=== PATIENT | female | born 1985 | race Caucasian/White ===

== ENCOUNTER 2021-11-07 11:56 | Outpatient (REF) | payer OTHER, SELFPAY | END 2021-11-07 11:57 | disposition home or self-care (01) | LOC: HO.10HDL 11:56 | PROVIDERS: Visit Provider Internal Medicine Infectious Disease | DX: Z13.89 Encounter for screening for other disorder (principal) ==

== ENCOUNTER 2021-12-08 11:24 | Outpatient (REF) | payer OTHER, SELFPAY | END 2021-12-08 11:25 | disposition home or self-care (01) | LOC: HO.WFDLDS 11:24 | PROVIDERS: Visit Provider Internal Medicine Infectious Disease | DX: R53.83 Other fatigue (principal); A69.20 Lyme disease, unspecified | CPT/HCPCS: 36415 ==

== ENCOUNTER 2023-09-09 14:05 | Emergency (ER) | payer OTHER, SELFPAY ==
--- NOTE | ~2023-09-09 | XR_ITS ---
EXAMINATION: CHEST RADIOGRAPH RADIOGRAPH OF THE RIGHT-SIDED RIB CAGE CLINICAL INFORMATION: Cough, shortness of breath, recent fall. COMPARISON: Chest radiograph 04/24/2014. TECHNIQUE: PA and lateral views of the chest. Oblique views of the right-sided rib cage. FINDINGS: Pectus excavatum leading to artifactual increased radiodensity in the right lower lobe. No focal consolidation, pleural effusion or pneumothorax. Normal appearance of the cardiomediastinal silhouette. Mildly displaced fracture of the right posterior 11th rib. Questionable nondisplaced deformity of the right anterior eighth rib. XR/XR chest 2V IMPRESSION: 1. No acute cardiopulmonary findings. 2. Mildly displaced fracture of the right posterior 11th rib. 3. Questionable nondisplaced fracture of the right anterior eighth rib. 4. Pectus excavatum leading to artifactual increased radiodensity in the right lower lobe.
--- NOTE | ~2023-09-09 | CT_ITS ---
EXAMINATION: CT ABDOMEN AND PELVIS WITH CONTRAST CLINICAL INFORMATION: abd pain COMPARISON: None. TECHNIQUE: Multidetector volumetric imaging was performed from the superior aspect of the liver through the pubic symphysis following administration of 85 mL Omnipaque 300 intravenous contrast. Sagittal and coronal reformatted images were obtained on the technologist workstation.. This CT examination was performed using dose optimization techniques as appropriate, variously including the following: *Automated exposure control *Adjustment of mA and/or kV according to patient size (this includes techniques or standardized protocols for targeted exams where dose is matched to indication/reason for exam; i.e. extremities or head) *Use of iterative reconstruction technique DLP: 372 mGy-cm FINDINGS: LUNG BASES: Patchy airspace changes in the dependent left lower lobe more likely due to atelectasis with infectious etiology considered possible but less likely LIVER, GALLBLADDER, AND BILIARY TREE: Diffuse fatty infiltration of the liver but no focal hepatic lesion nor biliary ductal dilatation The gallbladder is unremarkable with no evidence of radiopaque gallstones, gallbladder wall thickening, or obvious pericholecystic inflammatory changes. PANCREAS: Unremarkable. SPLEEN: Unremarkable. ADRENAL GLANDS: Unremarkable. KIDNEYS AND URETERS: The kidneys are normal in size, shape, and attenuation. No hydronephrosis, hydroureter, or perinephric stranding. No calculi. BLADDER: Unremarkable. GASTROINTESTINAL TRACT: The small and large bowel are unremarkable. The appendix is unremarkable. ABDOMINAL WALL: No significant hernia is appreciated. LYMPHOVASCULAR STRUCTURES: No lymphadenopathy. The aorta is unremarkable. PELVIC VISCERA: Physiologic changes OSSEOUS STRUCTURES: Unremarkable. CT/CT abdomen pelvis w IV con IMPRESSION: 1. No acute intra-abdominal process seen. Diffuse fatty infiltration of the liver. 2. Patchy airspace changes in the dependent left lower lobe more likely due to atelectasis with infectious etiology considered possible but less likely.
--- NOTE | ~2023-09-09 | XR_ITS ---
EXAMINATION: CHEST RADIOGRAPH RADIOGRAPH OF THE RIGHT-SIDED RIB CAGE CLINICAL INFORMATION: Cough, shortness of breath, recent fall. COMPARISON: Chest radiograph 04/24/2014. TECHNIQUE: PA and lateral views of the chest. Oblique views of the right-sided rib cage. FINDINGS: Pectus excavatum leading to artifactual increased radiodensity in the right lower lobe. No focal consolidation, pleural effusion or pneumothorax. Normal appearance of the cardiomediastinal silhouette. Mildly displaced fracture of the right posterior 11th rib. Questionable nondisplaced deformity of the right anterior eighth rib. XR/XR ribs RT min 3V w CXR1V IMPRESSION: 1. No acute cardiopulmonary findings. 2. Mildly displaced fracture of the right posterior 11th rib. 3. Questionable nondisplaced fracture of the right anterior eighth rib. 4. Pectus excavatum leading to artifactual increased radiodensity in the right lower lobe.
--- NOTE | 2023-09-09 16:26 | ED_ITS ---
HPI - General Adult General Chief complaint: General Medical Stated complaint: Vomiting/R flank pain/Diff breathing Time Seen by Provider: 09/09/23 18:44 Source: patient Mode of arrival: ambulatory Limitations: no limitations History of Present Illness HPI narrative: Patient is a 38 year old assigned female at with a history of alcohol use presenting to the emergency department today with nausea, vomiting, and a cough. Patient states that she recently went on a drinking grubbs and is now having nausea, vomiting, and right sided abdominal pain with a cough. Patient denies any dizziness, lightheadedness, fever, chills, blurry vision, double vision, loss of vision, chest pain, difficulty breathing, shortness of breath, back pain, night sweats, pain with urination, increased urinary frequency, increased urinary urgency, blood in her urine or stool, syncope or a near syncopal episode, recent trauma or falls, bowel incontinence, bladder incontinence, bowel retention, bladder retention, or any other complaints at this time. Onset (ago): hour(s) Location: abdomen and right Radiation: non-radiation Severity: mild Severity scale (1-10): 3 Quality: aching and dull Pain Consistency: constant Relieving factors: none Exacerbating factors: none Associated symptoms: cough and nausea/vomiting Treatments prior to arrival: none Related Data Previous Rx's Medication Instructions Recorded doxycycline hyclate 100 mg tablet 100 mg PO BID 7 days #14 tabs 09/09/23 ondansetron 4 mg disintegrating 4 mg PO Q8H 3 days #9 tabs 09/09/23 tablet Allergies Allergy/AdvReac Type Severity Reaction Status Date / Time No Known Allergies Allergy Verified 09/09/23 16:27 [No Known Allergies*] Review of Systems 2 Constitutional: Constitutional: Reports no additional constitutional complaints, Denies chills, Denies fever(s) and Denies night sweats Eyes: Eyes: Reports no additional eye complaints, Denies blurry vision, Denies change in vision, Denies diplopia, Denies eye discharge, Denies loss of vision and Denies eye pain ENT: Denies dizziness Cardiovascular: Cardiovascular: Reports no additional cardiovascular complaints, Denies chest pain, Denies lightheadedness, Denies Loss of Consciousness and Denies dyspnea Respiratory: Respiratory: Reports no additional respiratory complaints, Reports cough and Denies dyspnea Gastrointestinal: Gastrointestinal: Reports no additional gastrointestinal complaints, Reports abdominal pain, Denies melena, Denies hematochezia, Denies change in bowel habits, Denies change in stool character, Reports nausea and Reports vomiting Genitourinary: Genitourinary: Denies hematuria, Denies urinary frequency, Denies dysuria, Denies urinary incontinence, Denies urinary hesitancy and Denies urinary urgency Musculoskeletal: Musculoskeletal: Reports no additional musculoskeletal complaints, Denies numbness and Denies tingling Neurologic: Denies dizziness, Denies loss of vision, Denies numbness and Denies tingling Psychiatric: Psychiatric: Reports no additional psychiatric complaints Endocrine: Endocrine: Reports no additional endocrine complaints Hematologic/Lymphatic: Hematologic/Lymphatic: Reports no additional hematologic/lymphatic complaints Allergic/Immunologic: Allergic/Immunologic: Reports no additional allergic/immunologic complaints PMFSH Past Medical History Attestation statement: The following information was validated with the patient. Source: old records reviewed and nursing notes reviewed Social History Social History Smoked in Last 30 Days: No Use of substances other than those prescribed or required for medical reasons: Yes Substance Use Type: Marijuana Substance Use Frequency: Occasionally Advance Directives: No Advance Directives Information Provided: No Patient : No Physical Exam ED Vital Signs: Vital Signs - 24 hr 09/09/23 16:27 09/09/23 18:20 09/09/23 19:02 Temperature 98.0 F 98.9 F Pulse Rate 117 H 108 H 110 H Respiratory Rate 20 16 20 Blood Pressure 126/105 H 149/101 H 162/102 H Pulse Oximetry 98 97 97 Oxygen Delivery Method Room Air Room Air Room Air BMI result Body Mass Index 19.8 Const General: cooperative, no acute distress, alert and awake Nutritional Appearance: well nourished Orientation/consciousness: patient oriented x3 Limitations: no limitations HENMT Head: Yes normal to inspection and Yes atraumatic Ears: hearing grossly normal bilaterally and external ears normal General nose exam: Normal external nose present, no nasal discharge noted and no epistaxis Face and sinus: Yes normal facial exam, No abrasion and No laceration Mouth: Normal oral and palatal mucosa present, no drooling and no muffled voice Eyes General: appearance normal, both eyes and all related structures Periorbital: periorbital findings normal Eyelids: Yes eyelids normal Conjunctivae: conjunctivae normal Pupils: Equal, round and reactive pupils present EOM: EOMs intact bilaterally Neck Neck: Yes normal visual inspection, Yes full ROM and Yes no lymphadenopathy Chest Chest palpation & inspection: normal inspection of the chest Resp Effort & Inspection: normal respiratory effort and able to speak in complete sentences Auscultation: clear to auscultation bilaterally GI Inspection: Yes normal to inspection Palpation (GI): Soft to palpation, not firm, nontender and no guarding Neuro General: patient oriented x3 and moves all extremities Cranial nerves: Yes Equal, round and reactive pupils present Cognition (Neuro): normal cognition Motor exam (neuro): 5/5 motor strength present throughout Sensory Exam: Normal double simultaneous stimulation for sensation Coordination: [id number] test normal Extrem General: Yes normal to inspection, Yes full ROM and Yes capillary refill normal Psych Appearance: grossly normal Mental Status: mental status grossly normal Affect: normal affect Attitude: cooperative Thought process: Normal thought process present Thought content: Normal thought content present Insight: Good insight present (Psych) Course Course Course Narrative: This is a rapid medical exam: Additional HPI, ROS, PE not included below will be deferred to primary provider. Patient is a 38-year-old female presenting to the ED with complaint of right sided abdominal pain as well as nausea and vomiting. Also reports having asthma attacks overnight. Reports recent binge drinking over the past week, last drink was yesterday. Denies history of withdrawl seizures. States that she did fall a few days ago, is unsure if that is related to her current pain. Denies head strike with fall, states fell backwards into door. Also reporting episode of constipation 4-5 days ago, attempted to disimpact stool herself and then had rectal bleeding since but also got her period. Plan: labs, UA, CXR, viral swabs Medications Administered Discontinued Medications Generic Name Dose Route Start Last Admin Trade Name Freq PRN Reason Stop Dose Admin Doxycycline Monohydrate 100 mg 09/09/23 21:53 09/09/23 22:15 Doxycycline Monohydrate 100 Mg Capsule PO 09/09/23 21:54 100 mg ONCE ONE Administration Sodium Chloride 1,000 mls @ 999 mls/hr 09/09/23 18:45 09/09/23 20:53 Ns IV 09/09/23 19:45 Infused .Q1H1M MAYE Infusion Magnesium Sulfate/Dextrose 1 gm in 100 mls @ 100 mls/hr 09/09/23 18:44 09/09/23 20:53 Magnesium Sulfate/D5w IV 09/09/23 19:43 Infused ONCE ONE Infusion Iohexol 100 ml 09/09/23 21:15 09/09/23 21:16 Iohexol 350 Mg/Ml 100 Ml Infus..Btl IV 09/09/23 21:16 85 ml ONCE ONE Administration Ketorolac Tromethamine 15 mg 09/09/23 21:53 09/09/23 22:14 Ketorolac Tromethamine 15 Mg/Ml Vial IVPUSH 09/09/23 21:54 15 mg ONCE ONE Administration Lorazepam 2 mg 09/09/23 18:47 09/09/23 19:12 Lorazepam 2 Mg/Ml Vial IVPUSH 09/09/23 18:48 2 mg ONCE ONE Administration Ondansetron HCl 4 mg 09/09/23 19:50 09/09/23 19:59 Ondansetron Hcl 4 Mg/2 Ml Vial IVPUSH 09/09/23 19:51 4 mg ONCE ONE Administration Medical Decision Making Medical Decision Making [facility] Narrative: Patient is a 38 year old assigned female at with a history of alcohol use presenting to the emergency department today with right sided abdominal pain, a cough, nausea, and vomiting. Patient's physical exam was unremarkable. Patient's blood work was unremarkable. Patient's urine showed no acute process. Patient's right rib x-ray showed an 11th rib fracture and a possible 8th rib fracture. Patient's abdomen/pelvis CT showed evidence of a left lower lobe PNA. Given the patient's cough and broken ribs, will treat. I explained my physical exam findings as well as all test results to the patient and the patient's aunt. I answered all questions asked by the patient and the patient's aunt. I stressed the importance of the patient taking her medication as prescribed. I stressed the importance of the patient following up with her primary care provider. I stressed the importance of the patient returning to the emergency department immediately if her symptoms were to worsen or if she were to develop any dizziness, shortness of breath, difficulty breathing, chest pain, blurry vision, loss of vision, nausea, vomiting, abdominal pain, fever, chills, back pain, or any other complaints. Patient and the patient's aunt verbalized agreement and understanding with this treatment plan and discharge. Differential Diagnosis Differential Diagnoses: The differential diagnosis associated with the presentation includes Rib fracture Nausea Vomiting Pneumonia Admission/Observation Consideration of admission/observation: Escalation of care including admission/observation considered Patient would have been admitted to the hospital had her work up had any findings where hospital admission was appropriate and her clinical presentation warranted hospital admission. Lab Data MDM Lab Attestation statement: I reviewed the patient's lab results. My interpretation of these studies and their corresponding values is that they are grossly normal. 09/09/23 17:34 09/09/23 17:34 Labs: Lab Results 09/09/23 09/09/23 Range/Units 17:34 21:55 WBC 8.6 (4.8-10.8) X10*3/uL RBC 4.93 (4.20-5.50) X10*6/uL Hgb 15.3 (12.0-16.0) g/dl Hct 44.3 (37.0-47.0) % MCV 89.9 (80.0-98.0) fL MCH 31.0 (27.0-33.0) pg MCHC 34.5 (31.0-35.0) g/dl RDW 13.7 (11.0-16.0) % Plt Count 130 L (160-400) X10*3/uL MPV 9.6 (9.4-12.3) fL Immature Gran % (Auto) 0.4 (0.0-0.4) % Neut % (Auto) 81.1 H (45-73) % Lymph % (Auto) 13.8 L (20-40) % [place] % (Auto) 4.2 (2-11) % Eos % (Auto) 0.0 (0-4) % Baso % (Auto) 0.5 (0-2) % Lymph # (Auto) 1.2 (1.2-4.9) X10*3/uL [place] # (Auto) 0.4 (0.1-1.2) X10*3/uL Eos # (Auto) 0.0 (0.0-0.4) X10*3/uL Baso # (Auto) 0.0 (0.0-0.2) X10*3/uL Abs Immat Gran (auto) 0.03 (0.00-0.03) X10*3/uL Absolute Neuts (auto) 6.9 (2.0-8.3) x10*3/uL Absolute Nucleated RBC 0.000 (0.0-0.012) X10*3/uL Nucleated RBC % (auto) 0.0 (0.0-0.2) /100WBC PT 10.8 L (11.1-13.3) SEC INR 0.9 (0.9-1.1) APTT 31.6 (26.0-36.4) SEC Sodium 137 (135-145) mmol/L Potassium 3.9 (3.3-5.1) mmol/L Chloride 95 L (96-108) mmol/L Carbon Dioxide 19 L (22-29) mmol/L Anion Gap 27 H (12-20) BUN 7 L (9-16) mg/dL Creatinine 0.62 (0.5-1.4) mg/dL Estim Creat Clear Calc 114.5 Estimated GFR > 60 Random Glucose 75 (60-115) mg/dL Calcium 9.3 (8.4-10.2) mg/dL Magnesium 1.5 L (1.6-2.6) mg/dL Total Bilirubin 0.8 (0.0-1.0) mg/dL AST 54 H (5-31) U/L ALT 31 (0-31) U/L Alkaline Phosphatase 77 (39-117) U/L Total Protein 9.2 H (6.5-8.0) g/dL Albumin 4.8 (3.5-5.0) g/dL Beta HCG, Quant < 2 mIU/mL Urine Color Yellow Urine Appearance Clear Urine pH 8.0 (5.0-9.0) Ur Specific [place] >= 1.030 H (1.005-1.025) Urine Protein 30 (1+) H (Neg-Trace) mg/dL Urine Glucose (UA) Negative (Negative) mg/dL Urine Ketones 80 (Negative) mg/dL Urine Blood Moderate (2+) H (Negative) Urine Nitrite Negative (Negative) Ur Leukocyte Esterase Negative (Negative) Urine RBC 6-10 H (0-2) /HPF Urine WBC 0-5 (0-5) /HPF Ur Squamous Epith Cells 3-5 (0-2) /HPF Urine Bacteria 1+ (None Seen) Hyaline Casts 0-2 (0-2) /LPF Urine Opiates Screen Not Detected (Not Detect) Urine Fentanyl Screen Not Detected (Not Detect) Ur Barbiturates Screen Not Detected (Not Detect) Ur Phencyclidine Scrn Not Detected (Not Detect) Ur Amphetamines Screen Not Detected (Not Detect) U Benzodiazepines Scrn POSITIVE H (Not Detect) Urine Cocaine Screen Not Detected (Not Detect) U Marijuana (THC) Screen Not Detected (Not Detect) Ethyl Alcohol 33 mg/dL COVID-19 (BENJIE) Negative (Negative) COVID-19 Clin Com See Note Influenza Type A (MONIQUE) Negative (Negative) Influenza Type B (MONIQUE) Negative (Negative) Influenza A & B Note See Note Independent Interpretation I performed an independent interpretation of an: Plain X-Ray and CT Scan Interpretation: My interpretation is in agreement with the radiologist's impression of these imaging studies. - EXAMINATION: CHEST RADIOGRAPH RADIOGRAPH OF THE RIGHT-SIDED RIB CAGE CLINICAL INFORMATION: Cough, shortness of breath, recent fall. COMPARISON: Chest radiograph 04/24/2014. TECHNIQUE: PA and lateral views of the chest. Oblique views of the right-sided rib cage. FINDINGS: Pectus excavatum leading to artifactual increased radiodensity in the right lower lobe. No focal consolidation, pleural effusion or pneumothorax. Normal appearance of the cardiomediastinal silhouette. Mildly displaced fracture of the right posterior 11th rib. Questionable nondisplaced deformity of the right anterior eighth rib. XR/XR chest 2V IMPRESSION: 1. No acute cardiopulmonary findings. 2. Mildly displaced fracture of the right posterior 11th rib. 3. Questionable nondisplaced fracture of the right anterior eighth rib. 4. Pectus excavatum leading to artifactual increased radiodensity in the right lower lobe. Dictated By: Angelina Andrade Signed By: Electronically signed by Angelina Andrade 09/09/23 1843 - EXAMINATION: CT ABDOMEN AND PELVIS WITH CONTRAST CLINICAL INFORMATION: abd pain COMPARISON: None. TECHNIQUE: Multidetector volumetric imaging was performed from the superior aspect of the liver through the pubic symphysis following administration of 85 mL Omnipaque 300 intravenous contrast. Sagittal and coronal reformatted images were obtained on the technologist workstation.. This CT examination was performed using dose optimization techniques as appropriate, variously including the following: *Automated exposure control *Adjustment of mA and/or kV according to patient size (this includes techniques or standardized protocols for targeted exams where dose is matched to indication/reason for exam; i.e. extremities or head) *Use of iterative reconstruction technique DLP: 372 mGy-cm FINDINGS: LUNG BASES: Patchy airspace changes in the dependent left lower lobe more likely due to atelectasis with infectious etiology considered possible but less likely LIVER, GALLBLADDER, AND BILIARY TREE: Diffuse fatty infiltration of the liver but no focal hepatic lesion nor biliary ductal dilatation The gallbladder is unremarkable with no evidence of radiopaque gallstones, gallbladder wall thickening, or obvious pericholecystic inflammatory changes. PANCREAS: Unremarkable. SPLEEN: Unremarkable. ADRENAL GLANDS: Unremarkable. KIDNEYS AND URETERS: The kidneys are normal in size, shape, and attenuation. No hydronephrosis, hydroureter, or perinephric stranding. No calculi. BLADDER: Unremarkable. GASTROINTESTINAL TRACT: The small and large bowel are unremarkable. The appendix is unremarkable. ABDOMINAL WALL: No significant hernia is appreciated. LYMPHOVASCULAR STRUCTURES: No lymphadenopathy. The aorta is unremarkable. PELVIC VISCERA: Physiologic changes OSSEOUS STRUCTURES: Unremarkable. CT/CT abdomen pelvis w IV con IMPRESSION: 1. No acute intra-abdominal process seen. Diffuse fatty infiltration of the liver. 2. Patchy airspace changes in the dependent left lower lobe more likely due to atelectasis with infectious etiology considered possible but less likely. Dictated By: Lloyd Mederos MD Signed By: Electronically signed by Lloyd Mederos MD 09/09/23 662 Radiology Impression Discussion of test interpretation with radiology: I have reviewed the radiologist's reading. Independent Historian Clinical information obtained from an independent historian. History obtained from or confirmed by: Other (patient's aunt provided additional history and confirmed the history provided.) Prescription Management I considered prescription management with: Antibiotic (patient prescribed an antibiotic for her pneumonia) Discharge Plan Discharge Clinical Impression: Nausea & vomiting, Pneumonia, Closed rib fracture Patient Disposition: Home, Self-Care Instructions: Rib Fracture (ED), Acute Nausea and Vomiting (ED), Community Acquired Pneumonia (ED) Additional Instructions: Follow up with your primary care provider. Return to the emergency department immediately if your symptoms worsen or if you develop any dizziness, shortness of breath, difficulty breathing, chest pain, blurry vision, loss of vision, nausea, vomiting, abdominal pain, fever, chills, back pain, or any other complaints. Prescriptions: New doxycycline hyclate 100 mg tablet 100 mg PO BID 7 Days Qty: 14 0RF ondansetron 4 mg tablet,disintegrating 4 mg PO Q8H 3 Days Qty: 9 0RF [place] [facility] [place] (Call to establish and follow up with a primary care provider. If you already have a primary care provider, please follow up with them.) [facility] [place] [facility] [place] (Call to establish and follow up with a primary care provider. If you already have a primary care provider, please follow up with them.) [facility] [place] [facility] [place] (Call to establish and follow up with a primary care provider. If you already have a primary care provider, please follow up with them.) Stand Alone Forms: Work/School Release Interventions: ED Discharge Assessment Last Done: 09/09/23 22:22 Discharge Date/Time: 09/09/23 22:23 Print Language: German
[2023-09-09 16:27] VITALS: BP 126/105; PULSE 117; RESP 20; TEMP 36.7; O2SAT 98; BMI 19.8
[2023-09-09 17:40] LABS: MANUAL DIFF FLAG NO
[2023-09-09 17:44] LABS: Basophils Percent Auto 0.5 % (0-2); Hematocrit 44.3 % (37.0-47.0); Hemoglobin 15.3 g/dl (12.0-16.0); Imm Gran Abs Auto 0.03 X10*3/uL (0.00-0.03); Imm Gran Pct Auto 0.4 % (0.0-0.4); Lymphocytes Absolute Auto 1.2 X10*3/uL (1.2-4.9); Lymphocytes Percent Auto 13.8 % (20-40); Mean Corpuscular HGB Conc 34.5 g/dl (31.0-35.0); Mean Corpuscular Volume 89.9 fL (80.0-98.0); Mean Platelet Volume 9.6 fL (9.4-12.3); Monocytes Absolute Auto 0.4 X10*3/uL (0.1-1.2); Monocytes Percent Auto 4.2 % (2-11); Neutrophils Absolute Auto 6.9 x10*3/uL (2.0-8.3); Neutrophils Percent Auto 81.1 % (45-73); Platelet Count 130 X10*3/uL (160-400); Red Blood Count 4.93 X10*6/uL (4.20-5.50); Red Cell Distribution Width 13.7 % (11.0-16.0); White Blood Count 8.6 X10*3/uL (4.8-10.8)
[2023-09-09 17:47] LABS: INTERNATIONAL NORM RATIO 0.9 (0.9-1.1); Prothrombin Time 10.8 SEC (11.1-13.3)
[2023-09-09 17:49] LABS: Partial Thromboplastin Time 31.6 SEC (26.0-36.4)
[2023-09-09 18:09] LABS: IDNOW Serial# 9DB6401D; Influenza A Negative (Negative); Influenza B2 Negative (Negative)
[2023-09-09 18:10] LABS: COVID-19 Test Negative (Negative); IDNOW Serial# BCCEAD1C
[2023-09-09 18:15] LABS: Ethanol 33 mg/dL
[2023-09-09 18:20] VITALS: BP 149/101; PULSE 108; RESP 16; O2SAT 97
[2023-09-09 18:25] LABS: Alanine Aminotransferase 31 U/L (0-31); Albumin Level 4.8 g/dL (3.5-5.0); Alkaline Phosphatase 77 U/L (39-117); Anion Gap 27 (12-20); Aspartate Amino Transferase 54 U/L (5-31); Bilirubin Total 0.8 mg/dL (0.0-1.0); Blood Urea Nitrogen 7 mg/dL (9-16); Calcium 9.3 mg/dL (8.4-10.2); Carbon Dioxide 19 mmol/L (22-29); Chloride 95 mmol/L (96-108); Creatinine Clr Calc Pharmacy 114.5; Estimated Glomerular Filt Rate > 60; Glucose Random 75 mg/dL (60-115); HCG Quantitative < 2 mIU/mL; Magnesium 1.5 mg/dL (1.6-2.6); Potassium 3.9 mmol/L (3.3-5.1); Sodium 137 mmol/L (135-145); Total Protein 9.2 g/dL (6.5-8.0)
[2023-09-09 19:02] VITALS: BP 162/102; PULSE 110; RESP 20; TEMP 37.2; O2SAT 97
[2023-09-09] MEDS: Magnesium Sulfate/D5W 1 GM/100 ML PIGGYBACK IV (19:12)
[2023-09-09] MEDS: 0.9 % Sodium Chloride 1,000 ML 999 ML IV (19:12)
[2023-09-09] MEDS: LORazepam 2 MG/ML VIAL IVPUSH (19:12)
[2023-09-09] MEDS: ondansetron HCL 4 MG/2 ML VIAL IVPUSH (19:59)
--- NOTE | 2023-09-09 20:00 | PC.NURSE ---
I assumed care of the pt at 1900. Pt is resting in bed at this time, reporting pain in her upper right abdomen. Pt has a hx of ETOH abuse, had been sober for several weeks. over the holidays, pt had a binge episode. Has since developed tremors and abdominal pain. Pt is A&Ox4, GCS 15, with warm, dry skin. Reporting some nausea. Pt is very trmelous. IV placed in left AC and pt medicated per NOV.
[2023-09-09] MEDS: iohexoL 350 MG/ML 100 ML INFUS..BTL IV (21:16)
[2023-09-09 22:02] LABS: Appearance Urine Clear; Color Urine Yellow; Glucose Urine UA Negative (Negative); Leukocyte Esterase Urine Negative (Negative); Nitrite Urine Negative (Negative); Specific Gravity - Urine >= 1.030 (1.005-1.025); UMIC TRIGGER UACC YES; Urine Blood Moderate (2+) (Negative); Urine Ketones 80 mg/dL (Negative); Urine Protein 30 (1+) mg/dL (Neg-Trace)
[2023-09-09 22:05] LABS: Bacteria Urine 1+ (None Seen); Hyaline Casts Urine 0-2 /LPF (0-2); WBC Urine 0-5 /HPF (0-5)
[2023-09-09 22:10] LABS: Amphetamine Screen Urine Not Detected (Not Detect); Barbiturates, Urine Not Detected (Not Detect); Benzodiazepines Screen Urine POSITIVE (Not Detect); Cannabinoid Screen Urine Not Detected (Not Detect); Cocaine Screen Urine Not Detected (Not Detect); Fentanyl, urine Not Detected (Not Detect); Opiate Screen Urine Not Detected (Not Detect); Phencyclidine Screen Urine Not Detected (Not Detect)
[2023-09-09] MEDS: Ketorolac Tromethamine 15 MG/ML VIAL IVPUSH (22:14)
[2023-09-09] MEDS: Doxycycline Monohydrate 100 MG CAPSULE PO (22:15)
== END 2023-09-09 22:23 | disposition home or self-care (01) ==
PROVIDERS: Registered Nurse Emergency; Emergency Provider Emergency Medicine
DX: J18.9 Pneumonia, unspecified organism (principal); S22.31XA Fracture of one rib, right side, initial encounter for closed fracture; R11.2 Nausea with vomiting, unspecified; X58.XXXA Exposure to other specified factors, initial encounter; Y93.9 Activity, unspecified; Y92.9 Unspecified place or not applicable; Y99.9 Unspecified external cause status; Z11.52 Encounter for screening for COVID-19
CPT/HCPCS: 36415; 71046; 71101; 74177; 80053; 80307; 81001; 81003; 83735; 84702; 85025; 85610; 85730; 87502; 87635; 96361; 96374; 96375; 99284; J1885; J2060; J2405; J3475; Q9967

== ENCOUNTER 2023-12-31 06:40 | Emergency (ER) | payer OTHER, SELFPAY ==
--- NOTE | ~2023-12-31 | CT_ITS ---
EXAMINATION: CT ABDOMEN AND PELVIS WITH CONTRAST CLINICAL INFORMATION: Liver lesions COMPARISON: Ultrasound abdomen earlier today: Indeterminate 2.4 cm echogenic mass in the right lobe of the liver. MRI is the exam of choice for further evaluation. TECHNIQUE: Multidetector volumetric images were obtained from the superior aspect of the liver through the pubic symphysis following administration 85 mL of Omnipaque 350 intravenous contrast. No precontrast imaging was performed as the exam was only ordered as a postcontrast study. Sagittal and coronal reformatted images were obtained on the technologist's workstation. Oral contrast: No This CT examination was performed using dose optimization techniques as appropriate, variously including the following: *Automated exposure control *Adjustment of mA and/or kV according to patient size (this includes techniques or standardized protocols for targeted exams where dose is matched to indication/reason for exam; i.e. extremities or head) *Use of iterative reconstruction technique DLP: 397 mGy-cm FINDINGS: LUNG BASES: There is mild pectus excavatum. The visualized lung bases are unremarkable. LIVER, GALLBLADDER, AND BILIARY TREE: The liver is normal in size, shape, and attenuation. There is an ill-defined area of relative hypodensity seen predominantly around the region of the falciform ligament that measures 2.3 x 1.7 x 2 cm. This likely corresponds to the abnormality seen on the ultrasound study. The most likely diagnosis would be focal fat. However, as stated in the ultrasound report, the exam of choice for characterization is pre and postcontrast MRI of the liver. No other focal hepatic lesion or biliary ductal dilatation is present. The gallbladder is unremarkable with no evidence of radiopaque gallstones, gallbladder wall thickening, or obvious pericholecystic inflammatory changes. PANCREAS: Unremarkable. SPLEEN: Unremarkable. ADRENAL GLANDS: Unremarkable. KIDNEYS AND URETERS: The kidneys are normal in size, shape, and attenuation. No hydronephrosis, hydroureter, or calculi seen. No perinephric stranding. BLADDER: Unremarkable. GASTROINTESTINAL TRACT: The small and large bowel are unremarkable. The appendix is small in caliber but filled with hyperattenuating material. No evidence of appendicitis. ABDOMINAL WALL: No significant hernia is appreciated. LYMPH NODES: No retroperitoneal lymphadenopathy. VASCULAR: Unremarkable. PELVIC VISCERA: The uterus and adnexa are unremarkable. OSSEOUS STRUCTURES: Unremarkable. CT/CT abdomen pelvis w IV con IMPRESSION: The abnormality seen on the ultrasound study corresponds to an area of relative hypodensity around the falciform ligament. The most likely diagnosis would be focal fat infiltration. However, as stated in the ultrasound report, the exam of choice for characterization is pre and postcontrast MRI of the liver. Fleischner guidelines were followed.
--- NOTE | ~2023-12-31 | US_ITS ---
EXAMINATION: US ABDOMEN COMPLETE CLINICAL INFORMATION: Abdominal pain, nausea and vomiting and alcohol abuse. COMPARISON: CT abdomen pelvis 09/09/2023 TECHNIQUE: Real-time imaging of the abdominal viscera. FINDINGS: PANCREAS: Normal. ABDOMINAL AORTA: The proximal, mid, and distal segments are normal in caliber. INFERIOR VENA CAVA: Visualized portions are normal. LIVER: Liver is mildly enlarged at 17 cm in cephalocaudad dimension.. The liver contour is normal. There is diffuse increased liver parenchymal echogenicity, consistent with hepatic steatosis. There is an ill-defined 2.0 x 1.4 x 2.4 cm echogenic mass seen in the right lobe of the liver which is indeterminate on this study. This could not be seen on the 09/09/2023 study. This could represent an ill-defined area of increased focal fat. There is no intrahepatic biliary duct dilatation seen. GALLBLADDER: The gallbladder is physiologically distended without evidence of stones, sludge, polyps, wall thickening or pericholecystic fluid. COMMON BILE DUCT: Normal in caliber measuring 0.2 cm in diameter. RIGHT KIDNEY: No hydronephrosis. No renal calculi or focal parenchymal lesions. The kidney measures cm in maximum dimension. LEFT KIDNEY: No hydronephrosis. No renal calculi or focal parenchymal lesions. The kidney measures 11.0 cm in maximum dimension. SPLEEN: Normal. The spleen measures 8.5 cm in maximum dimension. FREE FLUID: None. US/US abdomen complete IMPRESSION: 1. Mildly enlarged fatty liver. 2. Indeterminate 2.4 cm echogenic mass in the right lobe of the liver. MRI is the exam of choice for further evaluation.
[2023-12-31 07:01] VITALS: BP 166/128; PULSE 119; RESP 22; TEMP 36.8; O2SAT 100; BMI 18.8
[2023-12-31 07:23] LABS: MANUAL DIFF FLAG NO
[2023-12-31 07:36] LABS: Basophils Absolute Auto 0.1 X10*3/uL (0.0-0.2); Basophils Percent Auto 0.7 % (0-2); Eosinophils Percent Auto 0.5 % (0-4); Hematocrit 41.3 % (37.0-47.0); Hemoglobin 14.2 g/dl (12.0-16.0); Imm Gran Abs Auto 0.02 X10*3/uL (0.00-0.03); Imm Gran Pct Auto 0.3 % (0.0-0.4); Lymphocytes Absolute Auto 2.2 X10*3/uL (1.2-4.9); Lymphocytes Percent Auto 29.5 % (20-40); Mean Corpuscular HGB Conc 34.4 g/dl (31.0-35.0); Mean Corpuscular Hemoglobin 30.7 pg (27.0-33.0); Mean Corpuscular Volume 89.4 fL (80.0-98.0); Monocytes Absolute Auto 0.7 X10*3/uL (0.1-1.2); Monocytes Percent Auto 9.4 % (2-11); Neutrophils Absolute Auto 4.4 x10*3/uL (2.0-8.3); Neutrophils Percent Auto 59.6 % (45-73); Red Blood Count 4.62 X10*6/uL (4.20-5.50); Red Cell Distribution Width 12.6 % (11.0-16.0); White Blood Count 7.4 X10*3/uL (4.8-10.8)
[2023-12-31 07:41] LABS: Alanine Aminotransferase 14 U/L (0-31); Albumin Level 4.7 g/dL (3.5-5.0); Alkaline Phosphatase 46 U/L (39-117); Anion Gap 16 (12-20); Aspartate Amino Transferase 23 U/L (5-31); Bilirubin Total 0.7 mg/dL (0.0-1.0); Blood Urea Nitrogen 10 mg/dL (9-16); Calcium 9.9 mg/dL (8.4-10.2); Carbon Dioxide 25 mmol/L (22-29); Chloride 100 mmol/L (96-108); Creatinine Clr Calc Pharmacy 100.8; Estimated Glomerular Filt Rate > 60; Glucose Random 96 mg/dL (60-115); Potassium 3.6 mmol/L (3.3-5.1); Sodium 137 mmol/L (135-145); Total Protein 8.6 g/dL (6.5-8.0)
[2023-12-31 07:59] LABS: Platelet Count 96 X10*3/uL (160-400)
[2023-12-31 08:00] LABS: Mean Platelet Volume 10.2 fL (9.4-12.3)
[2023-12-31 08:01] LABS: Ethanol < 10 mg/dL
--- NOTE | 2023-12-31 09:24 | ED_ITS ---
HPI - Nausea/Vomiting/Diarrhea General Chief complaint: Abdominal Pain Stated complaint: bloody stools Time Seen by Provider: 12/31/23 09:13 Source: patient and old records reviewed Mode of arrival: ambulatory Limitations: no limitations History of Present Illness HPI Narrative: 38 yo female with PMH of anxiety, PTSD, binge ETOH drinker on December she was drinking about 10 nips a dine and wine. She has never had a withdrawal seizure and has not gone to inpatient rehab. She started vomiting 2 days ago was trying to take pedialyte, feels very shaky, tried to take 0.5mg xanax that she is prescribed for anxiety this AM. She became very nervous when she had 2 black bowel movements this AM. She never saw blood or coffee grounds in her emesis. She has upper abdominal pain. She notes hx of h pylori in past but completed treatment. She takes no NSAIDs, thinners, is supposed to be on PPI and does try to take it every day. MD elicited complaint: nausea, vomiting and abdominal pain Pertinent past history: alcohol abuse Onset (ago): day(s) (2) Description of vomiting: watery and bilious Description of diarrhea: other (not diarrhea but had black tarry x 2) Associated nausea: Yes Associated abdominal pain: Yes Location of pain: epigastric Pain consistency: intermittent Severity: moderate Quality: aching Exacerbating factors: eating Relieving factors: none Context: alcohol abuse Associated symptoms: loss of appetite, malaise, nausea/vomiting and anxiety Treatment prior to arrival: other (xanax) Related Data Previous Rx's ?Medication ?Instructions ?Recorded doxycycline hyclate 100 mg tablet 100 mg PO BID 7 days #14 tabs 09/09/23 ondansetron 4 mg disintegrating 4 mg PO Q8H 3 days #9 tabs 09/09/23 tablet chlordiazepoxide HCl 25 mg capsule 50 mg (2 x 25 mg) PO Q4H PRN 12/31/23 alcohol withdrawal #16 caps omeprazole 20 mg capsule,delayed 20 mg PO BID #42 caps 12/31/23 release ondansetron 4 mg disintegrating 4 mg PO Q8H PRN nausea and 12/31/23 tablet vomiting #20 tabs Allergies Allergy/AdvReac Type Severity Reaction Status Date / Time No Known Allergies Allergy Verified 12/31/23 07:05 [No Known Allergies*] Review of Systems 2 Review of Systems: Constitutional : No Weight loss, No Fever, No Chills ENT/Mouth : No sore throat, No Rhinorrhea Eyes: No Swelling, No Redness Cardiovascular : No Chest Pain, No SOB, NoEdema Respiratory : No Cough, No Sputum, No Wheezing Gastrointestinal : Positive Nausea, Positive Vomiting, no Diarrhea, positive abdominal Pain, No Hematochezia, pos Melena Genitourinary : No Dysuria, No Urinary Frequency, No Hematuria, No Urgency Musculoskeletal : No joint pain, No Myalgias, No Joint Swelling Skin : No Skin Lesions, No rash Neuro : No Weakness, No Numbness, No Dizziness, No Headache Psych : pos Anxiety/Panic, No Depression All other systems reviewed and are negative. Gastrointestinal: Gastrointestinal: Reports nausea PMFSH Past Medical History Attestation statement: The following information was validated with the patient. Source: old records reviewed Medical History H pylori ulcer GERD (gastroesophageal reflux disease) Alcohol abuse Anxiety Social History Social History (Updated 12/31/23 @ 09:41 by Taryn Garcia DO) Patient Tobacco Use Status: Tobacco use Unknown Smoked in Last 30 Days: No Use of substances other than those prescribed or required for medical reasons: No Substance Use Type: Marijuana Advance Directives: No Advance Directives Information Provided: Yes Patient : No Physical Exam 2 Vital Signs: Vital Signs: Last Vital Signs Temp 97.8 F 12/31/23 13:30 Pulse 88 12/31/23 13:30 Resp 15 12/31/23 13:30 BP 144/109 H 12/31/23 13:30 Pulse Ox 98 12/31/23 13:30 O2 Del Method Room Air 12/31/23 13:30 BMI result Body Mass Index 18.8 Appearance: Alert. Oriented X3. Shaky mild acute distress. anxious Eyes: Pupils equal, round and reactive to light. ENT: Pharynx normal. Neck: Normal inspection. Neck supple. CVS: Normal heart rate and rhythm. Pulses normal. Respiratory: No respiratory distress. Breath sounds normal. Abdomen: Soft and mild epigastric pain no rebound Rectal: performed by [employer] present light to clear stool no blood or black noted Skin: Skin warm and dry. Normal skin color. Normal skin turgor. Extremities: No lower extremity edema. No calf ttp Neuro: Oriented X 3. No motor deficit. No sensory deficit. Tremors noted Medications Administered Discontinued Medications Generic Name Dose Route Start Last Admin Trade Name Chelita PRN Reason Stop Dose Admin Chlordiazepoxide HCl 50 mg 12/31/23 11:57 12/31/23 12:57 Chlordiazepoxide Hcl 25 Mg Capsule PO 12/31/23 11:58 50 mg ONCE ONE Administration Thiamine HCl 200 mg/ Sodium 102 mls @ 204 mls/hr 12/31/23 09:14 12/31/23 11:00 Chloride IV 12/31/23 09:43 Infused ONCE ONE Infusion Sodium Chloride 1,000 mls @ 999 mls/hr 12/31/23 09:15 12/31/23 11:30 Ns IV 12/31/23 10:15 Infused .Q1H1M MAYE Infusion Magnesium Sulfate 2 gm in 50 mls @ 25 mls/hr 12/31/23 09:15 12/31/23 13:40 Magnesium Sulfate/H2o IV 12/31/23 11:14 Infused ONCE ONE Infusion Sodium Chloride 1,000 mls @ 999 mls/hr 12/31/23 11:30 12/31/23 12:40 Ns IV 12/31/23 12:30 Infused .Q1H1M MAYE Infusion Iohexol 100 ml 12/31/23 14:35 12/31/23 14:35 Iohexol 350 Mg/Ml 100 Ml Infus..Btl IV 12/31/23 14:36 85 ml ONCE ONE Administration Lorazepam 2 mg 12/31/23 09:14 12/31/23 10:23 Lorazepam 2 Mg/Ml Vial IVPUSH 12/31/23 09:15 2 mg ONCE ONE Administration Pantoprazole Sodium 40 mg 12/31/23 09:14 12/31/23 10:23 Pantoprazole Sodium 40 Mg/10 Ml Vial IVPUSH 12/31/23 09:15 40 mg ONCE ONE Administration Medical Decision Making Medical Decision Making MDM Narrative: 38 yo female with PMH of anxiety, PTSD, binge ETOH drinker on Decemberation here with c/o n/v epigastric pain and saw 2 black stools today not on NSAIDs, thinners at this time basic labs, IV protonix, rectal exam, start on thiamine/magnesium and IV ativan. Possible gastritis, withdrawal, PUD, pancreatitis. Dispo per labs and clinical improvement Differential Diagnosis Differential Diagnoses: The differential diagnosis associated with the presentation includes gastritis, withdrawal, PUD, pancreatitis. Admission/Observation Consideration of admission/observation: Escalation of care including admission/observation considered tremors and vomiting resolved no signs of GIB neg guiac feeling much better does not feel she needs to be admitted Lab Data MDM Lab Attestation statement: I reviewed the patient's lab results. 12/31/23 07:18 12/31/23 07:18 Labs: Lab Results 12/31/23 12/31/23 12/31/23 Range/Units 07:18 09:35 09:41 WBC 7.4 (4.8-10.8) X10*3/uL RBC 4.62 (4.20-5.50) X10*6/uL Hgb 14.2 (12.0-16.0) g/dl Hct 41.3 (37.0-47.0) % MCV 89.4 (80.0-98.0) fL MCH 30.7 (27.0-33.0) pg MCHC 34.4 (31.0-35.0) g/dl RDW 12.6 (11.0-16.0) % Plt Count 96 L D (160-400) X10*3/uL MPV 10.2 (9.4-12.3) fL Immature Gran % (Auto) 0.3 (0.0-0.4) % Neut % (Auto) 59.6 (45-73) % Lymph % (Auto) 29.5 (20-40) % [place] % (Auto) 9.4 (2-11) % Eos % (Auto) 0.5 (0-4) % Baso % (Auto) 0.7 (0-2) % Lymph # (Auto) 2.2 (1.2-4.9) X10*3/uL [place] # (Auto) 0.7 (0.1-1.2) X10*3/uL Eos # (Auto) 0.0 (0.0-0.4) X10*3/uL Baso # (Auto) 0.1 (0.0-0.2) X10*3/uL Abs Immat Gran (auto) 0.02 (0.00-0.03) X10*3/uL Absolute Neuts (auto) 4.4 (2.0-8.3) x10*3/uL Absolute Nucleated RBC 0.000 (0.0-0.012) X10*3/uL Nucleated RBC % (auto) 0.0 (0.0-0.2) /100WBC PT 11.8 (11.1-13.3) SEC INR 1.0 (0.9-1.1) Sodium 137 (135-145) mmol/L Potassium 3.6 (3.3-5.1) mmol/L Chloride 100 (96-108) mmol/L Carbon Dioxide 25 (22-29) mmol/L Anion Gap 16 (12-20) BUN 10 (9-16) mg/dL Creatinine 0.65 (0.5-1.4) mg/dL Estim Creat Clear Calc 100.8 Estimated GFR > 60 Random Glucose 96 (60-115) mg/dL Calcium 9.9 D (8.4-10.2) mg/dL Magnesium 1.6 (1.6-2.6) mg/dL Total Bilirubin 0.7 (0.0-1.0) mg/dL AST 23 (5-31) U/L ALT 14 (0-31) U/L Alkaline Phosphatase 46 (39-117) U/L Total Protein 8.6 H (6.5-8.0) g/dL Albumin 4.7 (3.5-5.0) g/dL Lipase 36 (8-78) U/L Beta HCG, Quant < 2 mIU/mL Urine Color Urine Appearance Urine pH (5.0-9.0) Ur Specific [place] (1.005-1.025) Urine Protein (Neg-Trace) mg/dL Urine Glucose (UA) (Negative) mg/dL Urine Ketones (Negative) mg/dL Urine Blood (Negative) Urine Nitrite (Negative) Ur Leukocyte Esterase (Negative) Urine RBC (0-2) /HPF Urine WBC (0-5) /HPF Ur Squamous Epith Cells (0-2) /HPF Urine Bacteria (None Seen) Hyaline Casts (0-2) /LPF Stool Occult Blood NEGATIVE (NEGATIVE) Ethyl Alcohol < 10 mg/dL Blood Type A Positive Antibody Screen NEGATIVE 12/31/23 Range/Units 11:53 WBC (4.8-10.8) X10*3/uL RBC (4.20-5.50) X10*6/uL Hgb (12.0-16.0) g/dl Hct (37.0-47.0) % MCV (80.0-98.0) fL MCH (27.0-33.0) pg MCHC (31.0-35.0) g/dl RDW (11.0-16.0) % Plt Count (160-400) X10*3/uL MPV (9.4-12.3) fL Immature Gran % (Auto) (0.0-0.4) % Neut % (Auto) (45-73) % Lymph % (Auto) (20-40) % [place] % (Auto) (2-11) % Eos % (Auto) (0-4) % Baso % (Auto) (0-2) % Lymph # (Auto) (1.2-4.9) X10*3/uL [place] # (Auto) (0.1-1.2) X10*3/uL Eos # (Auto) (0.0-0.4) X10*3/uL Baso # (Auto) (0.0-0.2) X10*3/uL Abs Immat Gran (auto) (0.00-0.03) X10*3/uL Absolute Neuts (auto) (2.0-8.3) x10*3/uL Absolute Nucleated RBC (0.0-0.012) X10*3/uL Nucleated RBC % (auto) (0.0-0.2) /100WBC PT (11.1-13.3) SEC INR (0.9-1.1) Sodium (135-145) mmol/L Potassium (3.3-5.1) mmol/L Chloride (96-108) mmol/L Carbon Dioxide (22-29) mmol/L Anion Gap (12-20) BUN (9-16) mg/dL Creatinine (0.5-1.4) mg/dL Estim Creat Clear Calc Estimated GFR Random Glucose (60-115) mg/dL Calcium (8.4-10.2) mg/dL Magnesium (1.6-2.6) mg/dL Total Bilirubin (0.0-1.0) mg/dL AST (5-31) U/L ALT (0-31) U/L Alkaline Phosphatase (39-117) U/L Total Protein (6.5-8.0) g/dL Albumin (3.5-5.0) g/dL Lipase (8-78) U/L Beta HCG, Quant mIU/mL Urine Color Dark Yellow Urine Appearance Clear Urine pH >= 9.0 (5.0-9.0) Ur Specific [place] 1.025 (1.005-1.025) Urine Protein 100 (2+) H (Neg-Trace) mg/dL Urine Glucose (UA) Negative (Negative) mg/dL Urine Ketones 40 (Negative) mg/dL Urine Blood Trace H (Negative) Urine Nitrite Negative (Negative) Ur Leukocyte Esterase Trace H (Negative) Urine RBC 6-10 H (0-2) /HPF Urine WBC 0-5 (0-5) /HPF Ur Squamous Epith Cells 3-5 (0-2) /HPF Urine Bacteria Trace (None Seen) Hyaline Casts 0-2 (0-2) /LPF Stool Occult Blood (NEGATIVE) Ethyl Alcohol mg/dL Blood Type Antibody Screen External Record Review External record reviewed: Inpatient record Prescription Management I considered prescription management with: Other Critical Care Time Critical Care Time Critical Care Time: Yes Total Critical Care Time: 45 Attestation: IVF x 2L, IV magnesium, IV ativan, repeat assessments. I attest to this time spent taking care of the patient Discharge Plan Discharge Clinical Impression: Acute alcoholic gastritis, Alcohol use disorder, Thrombocytopenia Patient Disposition: Still a Patient Instructions: Gastritis (ED), Thrombocytopenia (ED), Alcohol Use Disorder (ED) Additional Instructions: avoid aspirin, motrin, aleve, ibuprofen - your platelets are low this is not abnormal for you but needs to be monitored by your doctor. return for worsening symptoms of bleeding. repeat platelet count in 2 days take the omeprazole twice a day for the next two weeks then daily going forward the librium taper is over the next 3 days. please follow up with our comprehensive care clinic - you spoke to Jess will need MRI of liver to assess for small lesion suspect focal fatty area but follow up with doctor to get MRI Prescriptions: New omeprazole 20 mg capsule,delayed release(DR/EC) 20 mg PO BID Qty: 42 0RF ondansetron 4 mg tablet,disintegrating 4 mg PO Q8H PRN (Reason: nausea and vomiting) Qty: 20 0RF chlordiazepoxide HCl 25 mg capsule 50 mg PO Q4H PRN (Reason: alcohol withdrawal) Qty: 16 0RF Rx Instructions: until symptoms controlled No Action doxycycline hyclate 100 mg tablet 100 mg PO BID 7 Days Qty: 14 0RF ondansetron 4 mg tablet,disintegrating 4 mg PO Q8H 3 Days Qty: 9 0RF Stand Alone Forms: Work/School Release Print Language: Welsh
[2023-12-31 09:50] LABS: OBS Int Ctl Valid YES; OBS1 NEGATIVE (NEGATIVE)
[2023-12-31 09:51] LABS: Prothrombin Time 11.8 SEC (11.1-13.3)
[2023-12-31 09:57] LABS: HCG Quantitative < 2 mIU/mL; Lipase 36 U/L (8-78); Magnesium 1.6 mg/dL (1.6-2.6)
--- NOTE | 2023-12-31 09:59 | PC.NURSE ---
PT STATES THAT SHE HAS BEEN BINGE DRINKING LAST SUNDAY AND STOP IN BETWEEN FOR 3-4 DAYS THEN STARTED AGAIN. LAST DRINK WAS LAST NIGHT. I HAD 7-8 OR GREATER SHOTS LAST NIGHT . PT IS A/O 4. SPEAKS IN FULL SENTENCE. PT APPEARS SHAKY AND ANXIOUS. NO EDEMA NOTED. NO N/V NOTED. BX + X 4 QUADS. PT AWARE OF PLAN OF CARE WILL CONTINUE TO MONITOR.
[2023-12-31 10:00] VITALS: BP 145/112; PULSE 94; RESP 14; TEMP 36.6; O2SAT 100
[2023-12-31] MEDS: LORazepam 2 MG/ML VIAL IVPUSH (10:23)
[2023-12-31] MEDS: Pantoprazole Sodium 40 MG/10 ML VIAL IVPUSH (10:23)
[2023-12-31] MEDS: 0.9 % Sodium Chloride 1,000 ML 999 ML IV ×2 (10:27→11:35)
[2023-12-31] MEDS: Thiamine HCL 200 MG in 0.9 % Sodium Chloride 100 ML 204 MG IV (10:27)
[2023-12-31 11:31] VITALS: BP 148/104; PULSE 86; RESP 15; TEMP 36.9; O2SAT 100
[2023-12-31] MEDS: Magnesium Sulfate/H2O 2 GM/50 ML PIGGYBACK IV (11:34)
[2023-12-31 11:59] LABS: Appearance Urine Clear; Color Urine Dark Yellow; Glucose Urine UA Negative (Negative); Leukocyte Esterase Urine Trace (Negative); Nitrite Urine Negative (Negative); PH >= 9.0 (5.0-9.0); Specific Gravity - Urine 1.025 (1.005-1.025); UMIC TRIGGER UACC YES; Urine Blood Trace (Negative); Urine Ketones 40 mg/dL (Negative); Urine Protein 100 (2+) mg/dL (Neg-Trace)
[2023-12-31 12:01] LABS: Bacteria Urine Trace (None Seen); Hyaline Casts Urine 0-2 /LPF (0-2); WBC Urine 0-5 /HPF (0-5)
--- NOTE | 2023-12-31 12:45 | PC.NURSE ---
BEDSIDE ULTRASOUND WAS DONE.
[2023-12-31] MEDS: chlordiazePOXIDE HCl 25 MG CAPSULE 50 MG PO (12:57)
[2023-12-31 13:30] VITALS: BP 144/109; PULSE 88; RESP 15; TEMP 36.6; O2SAT 98
[2023-12-31] MEDS: iohexoL 350 MG/ML 100 ML INFUS..BTL IV (14:35)
--- NOTE | 2023-12-31 15:50 | MHC.RECOVRN ---
Met with pt in ED14 after provider request. Pt had presented to the ED reporting tarry dark stools, abdominal pain, nausea, vomiting, and alcohol use. Pt laying in bed, asleep, wakes to voice. Pts aunt present upon entering and left the room for conversation. Pt reports alcohol use, 2 four pack bottles of wine as well as 10 nips daily. 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 Pt reports she will typically drink 3 days in a row and then stop for a period of time. Pt reports this cycle has been occurring since [facility]. Pt reports family hx AUD, everyone drinks. Pt states We are an [place] family so it's what we do. Pt denies hx AUD treatment, however did order naltrexone online around [place]. Pt reports she took one dose and hallucinated. Pt reports she has an upcoming appt with hypnotherapist in [place]. Pt denies other outpatient supports. Pt interested in ATS after I finish out the school year. Educated pt on options and facilities that accept her insurance. Discussed outpatient options such as the [facility], pt voices interest but does not want to make appt at this time. Pt provided with resources as well as t/w contact information if needed. Pt denies questions or concerns for t/w.
[2023-12-31 16:59] VITALS: BP 152/104; PULSE 85; RESP 14; O2SAT 98
--- NOTE | 2023-12-31 17:00 | PC.NURSE ---
DR PETER AT THE BEDSIDE TO ASSESS PTS HTN, PT STATES SHE HAD BEEN ON MEDS BEFORE FOR HTN AND RESTING TREMOR. PLAN IS FOR DISCHARGE WITH PRESCRIPTIONS AND FOLLOW UP WITH OBTAINING PCPFOR FURTHER MANAGEMENT
[2023-12-31 17:02] VITALS: BP 152/104; PULSE 85; RESP 14; TEMP 36.6; O2SAT 98
== END 2023-12-31 17:03 | disposition home or self-care (01) ==
PROVIDERS: Emergency Provider Emergency Medicine
DX: K29.20 Alcoholic gastritis without bleeding (principal); F10.10 Alcohol abuse, uncomplicated; Y90.9 Presence of alcohol in blood, level not specified; D69.6 Thrombocytopenia, unspecified
CPT/HCPCS: 36415; 74177; 76700; 80053; 80307; 81001; 82272; 83690; 83735; 84702; 85025; 85610; 86850; 86900; 86901; 96361; 96365; 96366; 96375; 99284; C9113; J2060; J3411; J3475; Q9967

== ENCOUNTER 2024-05-08 15:49 | Outpatient (AMB) | payer BC, SELFPAY ==
--- NOTE | 2024-05-08 15:58 | A.OFFPC_ITS ---
Vital Signs 05/08/24 16:04 Height 5 ft 7 in Weight 125 lb 6 oz BMI 19.6 BP 136/78 Blood Pressure Location Rt brachial Position Sitting Respiration 16 Pulse 103 H Pulse Source Pulse Oximeter Pulse Oximetry (%) 99 Oxygen Delivery Method Room Air Intake Visit Reasons: NPV, needs referral Intake Note: new patient visit and need referrals. Allergies No Known Allergies [No Known Allergies*] Allergy (Verified 05/08/24 16:00) Tobacco use date assessed: 05/08/24 Dental Screening Dental Screen Date: 05/08/24 Did you have a dental visit in the last 12 months?: Yes Did you have a dental problem in the last 6 months where you did not have access to dental care?: No Was dental information given to patient?: Patient has dentist HPI HPI Comments History of Present Illness Details 39 year old patient with depression, anx iety and GERD presents for visit to establish care. Transferring from PCP in [place]. Records release signed. She had COVID-19 2 weeks ago. Still a little fatigued. 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 Starting new job in [place] in the next couple weeks. She needs a referral to her psychiatrist, Sierra Valdez, at [facility]. She's had anxiety since age 7 years old. Long standing history of AM nausea and vomiting attributed to this. She takes Prilosec for GERD, and this reduces episodes. She also has a history of depression and possibly bipolar disorder, but they are still in the process of diagnosis. During the past four months she has alternating constipation and diarrhea. No blood in stools. She's had Lyme disease. Requests testing for tick borne disease. She takes Albuterol as needed for asthma which is triggered by illness. ROS: Constitutional: No unexplained weight loss, fevers or chills. +fatigue Respiratory: No shortness of breath, cough or sputum production. Cardiovascular: No chest pain Gastrointestinal: No anorexia, abdominal pain or blood in stools Skin: No rash Physical exam: Constitutional: Alert, in no distress. Neck: Supple, Full range of motion. No lymphadenopathy. . Respiratory: Clear to auscultation. Cardiovascular: S1 S2 regular. No murmurs. Gastrointestinal: Abdomen soft, non-tender, non-distended. Normal bowel sounds. No palpable masses. Extremities: Warm and well perfused. No clubbing, cyanosis or edema. Psychiatric: Normal mood and affect [facility] Medical History (Updated 05/08/24 @ 21:01 by CARMEN Orozco) History of pneumonia Nausea and vomiting Alternating constipation and diarrhea Eczema Depression Tremor of both hands Hypertension Asthma H pylori ulcer GERD (gastroesophageal reflux disease) Alcohol abuse Anxiety Surgical History (Updated 05/08/24 @ 16:22 by Brenden Porter) No pertinent past surgical history Family History (Updated 05/08/24 @ 16:24 by Brenden Porter) Father Mental health disorder Substance use Hypertension Brother Substance use Asthma Mother High cholesterol Diabetes Thyroid disorder Maternal Grandmother Clotting disorder Breast cancer Maternal Grandfather Clotting disorder Social History (Updated 12/31/23 @ 09:41 by Taryn Garcia DO) Housing: Apartment Patient Tobacco Use Status: Never used Tobacco e-Cigarette/Vaping Use: Never Used Substance Use Type: Marijuana service: No Current occupational status: employed and unemployed 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 1. Little interest or pleasure in doing things: several days 2. Feeling down, depressed, or hopeless: several days 3. Trouble falling or staying asleep, or sleeping too much: several days 4. Feeling tired or having little energy: several days 5. Poor appetite or overeating: several days 6. Feeling bad about yourself - or that you are a failure or have let yourself or your family down: not at all 7. Trouble concentrating on things, such as reading the newspaper or watching television: not at all 8. Moving or speaking so slowly that other people could have noticed. Or the opposite - being so fidgety or restless that you have been moving around a lot more than usual: not at all 9. Thoughts that you would be better off or of hurting yourself in some way: not at all Total score: 5 Depression Screening Interpretation: Positive Depression Screening Follow-up: Existing condition and In treatment Depression Screening Done: Yes 00801 - PHQ-9 Billing: Yes Source: Developed by Drs. Sg Stanford, Shelley Aj, Toribio Koehler and colleagues, with an educational bolivar from [employer]. Thrive Questionnaire Date Thrive assessed: 05/08/24 I am a: Patient What is your living situation today?: I have a steady place to live Within the past 12 months, did the food you bought not last and you didn't have the money to get more?: Never true Within the past 12 months, did you worry whether your food would run out before you got money to buy more?: Never true Do you have trouble paying for medicines?: No Do you have trouble getting transportation to medical appointments?: Yes Do you have trouble paying your heating and electricity bill?: No Do you have trouble taking care of your child, family member or friend?: No Do you have trouble with day-to-day activities such as bathing, preparing meals, shopping, managing finances, etc.?: No Are you currently unemployed and looking for a job?: Yes Are you interested in more education?: Yes Please select the resources that you would like help with: Education THRIVE Score: 1 MELANIE-7 AMB Questionnaire MELANIE-7 Date MELANIE - 7 assessed: 05/08/24 Feeling nervous, anxious, or on edge: 1 = Several days Not being able to stop or control worryin = More than half the days Worrying too much about different things: 1 = Several days Trouble relaxin = Several days Being so restless that it is hard to sit still: 2 = More than half the days Becoming easily annoyed or irritable: 2 = More than half the days Feeling afraid as if something awful might happen: 0 = Not at all Total MELANIE-7 score (0-4 normal; 5-9 mild; 10-14 moderate; 15-21 severe): 9 Source: Developed by Drs. Sg Stanford, Shelley Aj, Toribio Koehler and colleagues, with an educational bolivar from [employer]. MELANIE-7 Assessment Billing MELANIE-7 Assessment Tool: MELANIE-7 Assessment 09686 ACT Questionnaire In the past 4 weeks, how much of the time did your asthma keep you from getting as much done at work, school or at home?: None of the time During the past 4 weeks, how often have you had shortness of breath?: Not at all During the past 4 weeks, how often did your asthma symptoms wake you up at night or earlier than usual in the morning?: Not at all During the past 4 weeks, how often have you had to use your rescue inhaler or nebulizer medication?: Not at all How would you rate your asthma control during the past 4 weeks?: Well controlled Score: 24 Physical exam (Primary Care) Vital Signs: Last Vital Signs Pulse 103 H 05/08/24 16:04 Resp 16 05/08/24 16:04 BP 136/78 05/08/24 16:04 Pulse Ox 99 05/08/24 16:04 Oxygen Delivery Method Room Air 05/08/24 16:04 BMI result Body Mass Index 19.6 Tobacco/Smoking Status: Tobacco use Status Tobacco use date assessed 05/08/24 05/08/24 16:10 Patient Tobacco Use Status Never used Tobacco 05/08/24 16:10 e-Cigarette/Vaping Use Never Used 05/08/24 16:10 PHQ-9: PHQ-9 Score PHQ-9: Total score 5 05/08/24 17:17 Depression Screening Interpretation: Positive Depression Screening Follow-up: Existing condition and In treatment Thrive Assessment: Date of Thrive Assessment Date Thrive assessed 05/08/24 05/08/24 16:14 Assessment and Plan Assessment & Plan (1) Alternating constipation and diarrhea: Code(s): R19.8 - Other specified symptoms and signs involving the digestive system and abdomen Plan: Possible IBS. check labs. Refer to gastroenterology. (2) GERD (gastroesophageal reflux disease): Code(s): K21.9 - Gastro-esophageal reflux disease without esophagitis Qualifiers: Esophagitis presence: esophagitis presence not specified Qualified Code(s): K21.9 - Gastro-esophageal reflux disease without esophagitis Plan: Takes PPI as needed. Avoidance of triggers recommended. (3) Nausea and vomiting: Code(s): R11.2 - Nausea with vomiting, unspecified Qualifiers: Vomiting type: unspecified Qualified Code(s): R11.2 - Nausea with vomiting, unspecified Plan: Chronic and suspected to be psychogenic, but given chronic GERD, EGD should be considered. Labs ordered. Referred to gastro. (4) Anxiety: Code(s): F41.9 - Anxiety disorder, unspecified Plan: Continue treatment per psych. Referral placed. (5) Depression: Code(s): F32.A - Depression, unspecified Qualifiers: Depression Type: major depressive disorder Major depression recurrence: recurrent Active/Remission status: currently active Plan: See plan for anxiety. Plan Needs CPE-schedule at check out. Orders: Orders Lyme IgG/IgM w/reflex to WB Today K21.9 - Gastro-esophageal reflux disease without esophagitis, R11.2 - Nausea with vomiting, unspecified Complete Blood Count no Diff Today K21.9 - Gastro-esophageal reflux disease without esophagitis, R11.2 - Nausea with vomiting, unspecified Cyclospora & Isospora Stool Today R19.7 - Diarrhea, unspecified Tick-borne Disease Molecular Today K21.9 - Gastro-esophageal reflux disease without esophagitis, R11.2 - Nausea with vomiting, unspecified Comprehensive Met. Panel Today K21.9 - Gastro-esophageal reflux disease without esophagitis, R11.2 - Nausea with vomiting, unspecified Lipase Today K21.9 - Gastro-esophageal reflux disease without esophagitis, R11.2 - Nausea with vomiting, unspecified Amylase Today K21.9 - Gastro-esophageal reflux disease without esophagitis, R11.2 - Nausea with vomiting, unspecified H pylori Ag Stool Today R11.2 - Nausea with vomiting, unspecified Referrals Psychiatry Referral F32.A - Depression, unspecified, F41.9 - Anxiety disorder, unspecified Gastroenterology Referral K21.9 - Gastro-esophageal reflux disease without esophagitis, R19.8 - Other specified symptoms and signs involving the digestive system and abdomen Medications: Discontinued doxycycline hyclate Discontinued Reason: No Longer Medically Relevant 100 mg PO BID 7 days 14 tabs 0RF ondansetron Discontinued Reason: No Longer Medically Relevant 4 mg PO Q8H 3 days 9 tabs 0RF ondansetron Discontinued Reason: No Longer Medically Relevant 4 mg PO Q8H PRN 20 tabs 0RF nausea and vomiting Coding Level of Care Code New Pt Level 4 (44352) Complex EM visit Add On G2211 Diagnoses Alternating constipation and diarrhea R19.8 Gastroesophageal reflux disease, unspecified whether esophagitis present K21.9 Esophagitis presence: esophagitis presence not specified Nausea and vomiting, unspecified vomiting type R11.2 Vomiting type: unspecified Anxiety F41.9 Depression F32.A Depression Type: major depressive disorder Major depression recurrence: recurrent Active/Remission status: currently active Additional Codes MELANIE-7 Assessment Billing - MELANIE-7 Assessment Tool: MELANIE-7 Assessment [id number] ([id number])
[2024-05-08 16:04] VITALS: BP 136/78; PULSE 103; RESP 16; O2SAT 99; BMI 19.6
--- NOTE | 2024-05-08 16:20 | MHC.PC.OV ---
Vital Signs 05/08/24 16:04 Height 5 ft 7 in Weight 125 lb 6 oz BMI 19.6 BP 136/78 Blood Pressure Location Rt brachial Position Sitting Respiration 16 Pulse 103 H Pulse Source Pulse Oximeter Pulse Oximetry (%) 99 Oxygen Delivery Method Room Air Intake Visit Reasons: NPV, needs referral Allergies No Known Allergies [No Known Allergies*] Allergy (Verified 05/08/24 16:00) Tobacco use date assessed: 05/08/24 Dental Screening Dental Screen Date: 05/08/24 Did you have a dental visit in the last 12 months?: Yes Did you have a dental problem in the last 6 months where you did not have access to dental care?: No Was dental information given to patient?: Patient has dentist [facility] Medical History (Updated 05/08/24 @ 16:21 by Brenden Porter) Eczema Depression Tremor of both hands Hypertension Asthma H pylori ulcer GERD (gastroesophageal reflux disease) Alcohol abuse Anxiety Surgical History (Updated 05/08/24 @ 16:22 by Brenden Porter) No pertinent past surgical history Family History (Updated 05/08/24 @ 16:24 by Brenden Porter) Father Mental health disorder Substance use Hypertension Brother Substance use Asthma Mother High cholesterol Diabetes Thyroid disorder Maternal Grandmother Clotting disorder Breast cancer Maternal Grandfather Clotting disorder Social History (Updated 12/31/23 @ 09:41 by Taryn Garcia DO) Housing: Apartment Patient Tobacco Use Status: Never used Tobacco e-Cigarette/Vaping Use: Never Used Substance Use Type: Marijuana service: No Current occupational status: employed and unemployed 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 1. Little interest or pleasure in doing things: several days 2. Feeling down, depressed, or hopeless: several days 3. Trouble falling or staying asleep, or sleeping too much: several days 4. Feeling tired or having little energy: several days 5. Poor appetite or overeating: several days 6. Feeling bad about yourself - or that you are a failure or have let yourself or your family down: not at all 7. Trouble concentrating on things, such as reading the newspaper or watching television: not at all 8. Moving or speaking so slowly that other people could have noticed. Or the opposite - being so fidgety or restless that you have been moving around a lot more than usual: not at all 9. Thoughts that you would be better off or of hurting yourself in some way: not at all Total score: 5 Depression Screening Interpretation: Positive Depression Screening Done: Yes 77284 - PHQ-9 Billing: Yes Source: Developed by Drs. Sg Stanford, Shelley Aj, Toribio Koehler and colleagues, with an educational bolivar from [employer]. Thrive Questionnaire Date Thrive assessed: 05/08/24 I am a: Patient What is your living situation today?: I have a steady place to live Within the past 12 months, did the food you bought not last and you didn't have the money to get more?: Never true Within the past 12 months, did you worry whether your food would run out before you got money to buy more?: Never true Do you have trouble paying for medicines?: No Do you have trouble getting transportation to medical appointments?: Yes Do you have trouble paying your heating and electricity bill?: No Do you have trouble taking care of your child, family member or friend?: No Do you have trouble with day-to-day activities such as bathing, preparing meals, shopping, managing finances, etc.?: No Are you currently unemployed and looking for a job?: Yes Are you interested in more education?: Yes Please select the resources that you would like help with: Education THRIVE Score: 1 MELANIE-7 AMB Questionnaire MELANIE-7 Date MELANIE - 7 assessed: 05/08/24 Feeling nervous, anxious, or on edge: 1 = Several days Not being able to stop or control worryin = More than half the days Worrying too much about different things: 1 = Several days Trouble relaxin = Several days Being so restless that it is hard to sit still: 2 = More than half the days Becoming easily annoyed or irritable: 2 = More than half the days Feeling afraid as if something awful might happen: 0 = Not at all Total MELANIE-7 score (0-4 normal; 5-9 mild; 10-14 moderate; 15-21 severe): 9 Source: Developed by Shelley Cerrato B.W. Jean Marie, Toribio Koehler and colleagues, with an educational bolivar from [employer]. ACT Questionnaire In the past 4 weeks, how much of the time did your asthma keep you from getting as much done at work, school or at home?: None of the time During the past 4 weeks, how often have you had shortness of breath?: Not at all During the past 4 weeks, how often did your asthma symptoms wake you up at night or earlier than usual in the morning?: Not at all During the past 4 weeks, how often have you had to use your rescue inhaler or nebulizer medication?: Not at all How would you rate your asthma control during the past 4 weeks?: Well controlled Score: 24 Physical exam (Primary Care) Vital Signs: Last Vital Signs Pulse 103 H 05/08/24 16:04 Resp 16 05/08/24 16:04 BP 136/78 05/08/24 16:04 Pulse Ox 99 05/08/24 16:04 Oxygen Delivery Method Room Air 05/08/24 16:04 BMI result Body Mass Index 19.6 Tobacco/Smoking Status: Tobacco use Status Tobacco use date assessed 05/08/24 05/08/24 16:25 Patient Tobacco Use Status Never used Tobacco 05/08/24 16:25 e-Cigarette/Vaping Use Never Used 05/08/24 16:25 PHQ-9: PHQ-9 Score PHQ-9: Total score 5 05/08/24 16:25 Depression Screening Interpretation: Positive Thrive Assessment: Date of Thrive Assessment Date Thrive assessed 05/08/24 05/08/24 16:25 Assessment and Plan Assessment & Plan Orders: Orders Lyme IgG/IgM w/reflex to WB Today K21.9 - Gastro-esophageal reflux disease without esophagitis, R11.2 - Nausea with vomiting, unspecified Complete Blood Count no Diff Today K21.9 - Gastro-esophageal reflux disease without esophagitis, R11.2 - Nausea with vomiting, unspecified Cyclospora & Isospora Stool Today R19.7 - Diarrhea, unspecified Tick-borne Disease Molecular Today K21.9 - Gastro-esophageal reflux disease without esophagitis, R11.2 - Nausea with vomiting, unspecified Comprehensive Met. Panel Today K21.9 - Gastro-esophageal reflux disease without esophagitis, R11.2 - Nausea with vomiting, unspecified Lipase Today K21.9 - Gastro-esophageal reflux disease without esophagitis, R11.2 - Nausea with vomiting, unspecified Amylase Today K21.9 - Gastro-esophageal reflux disease without esophagitis, R11.2 - Nausea with vomiting, unspecified H pylori Ag Stool Today R11.2 - Nausea with vomiting, unspecified Medications: Discontinued doxycycline hyclate Discontinued Reason: No Longer Medically Relevant 100 mg PO BID 7 days 14 tabs 0RF ondansetron Discontinued Reason: No Longer Medically Relevant 4 mg PO Q8H 3 days 9 tabs 0RF ondansetron Discontinued Reason: No Longer Medically Relevant 4 mg PO Q8H PRN 20 tabs 0RF nausea and vomiting Coding
== END 2024-05-08 16:39 | disposition home or self-care (01) ==
PROVIDERS: Visit Provider Physician Assistant Medical
DX: K21.9 Gastro-esophageal reflux disease without esophagitis (principal); R11.2 Nausea with vomiting, unspecified; F41.9 Anxiety disorder, unspecified; F32.A Depression, unspecified
CPT/HCPCS: 99204

== ENCOUNTER 2024-05-29 15:46 | Outpatient (REF) | payer OTHER, SELFPAY ==
[2024-05-29 17:42] LABS: Hematocrit 38.1 % (37.0-47.0); Hemoglobin 12.9 g/dl (12.0-16.0); Mean Corpuscular HGB Conc 33.9 g/dl (31.0-35.0); Mean Corpuscular Hemoglobin 31.9 pg (27.0-33.0); Mean Corpuscular Volume 94.1 fL (80.0-98.0); Mean Platelet Volume 10.3 fL (9.4-12.3); Platelet Count 247 X10*3/uL (160-400); Red Blood Count 4.05 X10*6/uL (4.20-5.50)
[2024-05-29 18:08] LABS: Alanine Aminotransferase 9 U/L (0-31); Albumin Level 4.2 g/dL (3.5-5.0); Alkaline Phosphatase 45 U/L (39-117); Amylase 67 U/L (28-100); Anion Gap 11 (12-20); Aspartate Amino Transferase 15 U/L (5-31); Blood Urea Nitrogen 9 mg/dL (9-16); Calcium 9.1 mg/dL (8.4-10.2); Carbon Dioxide 25 mmol/L (22-29); Chloride 106 mmol/L (96-108); Estimated Glomerular Filt Rate > 60; Glucose Random 85 mg/dL (60-115); Potassium 3.9 mmol/L (3.3-5.1); Sodium 138 mmol/L (135-145); Total Protein 7.8 g/dL (6.5-8.0)
[2024-05-29 18:19] LABS: Bilirubin Total 0.3 mg/dL (0.0-1.0); Lipase 44 U/L (8-78)
[2024-05-30 22:18] LABS: Lyme Abs Screen <0.90 index
[2024-05-31 11:28] LABS: A. Phagocytphilium DNA,RT-PCR NOT DETECTED (NOT DETECTED); Babesia Microti DNA, RT-PCR NOT DETECTED (NOT DETECTED); Borrelia Miyamotoi,DNA RT-PCR NOT DETECTED (NOT DETECTED); E.Chaffeensis DNA RT-PCR NOT DETECTED (NOT DETECTED); Lyme(Borrelia ssp)DNA RT-PCR NOT DETECTED (NOT DETECTED)
== END 2024-05-29 15:47 | disposition home or self-care (01) ==
LOC: HO.WFDLDS 15:46
PROVIDERS: Visit Provider Physician Assistant Medical
DX: Z00.00 Encounter for general adult medical examination without abnormal findings (principal); K21.9 Gastro-esophageal reflux disease without esophagitis; R11.2 Nausea with vomiting, unspecified; F32.A Depression, unspecified; F41.9 Anxiety disorder, unspecified
CPT/HCPCS: 36415; 80053; 82150; 83690; 85027; 86617; 86618; 87468; 87469; 87478; 87484; 87798; 96127

== ENCOUNTER 2024-05-29 15:46 | Outpatient (AMB) | payer OTHER, SELFPAY ==
--- NOTE | 2024-05-29 15:56 | A.OFFPC_ITS ---
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 Required: No Is last menstrual period known: Yes Last menstrual period: 05/29/24 Post menopausal: No Patient : No Allergies No Known Allergies [No Known Allergies*] Allergy (Verified 05/29/24 15:59) Tobacco use date assessed: 05/29/24 Dental Screening Dental Screen Date: 05/29/24 Did you have a dental visit in the last 12 months?: Yes Did you have a dental problem in the last 6 months where you did not have access to dental care?: No Was dental information given to patient?: Patient has dentist HPI HPI Comments History of Present Illness Details 39 year old patient with depression, anx iety and GERD presents for annual physical exam. . 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 She needs a referral to her psychiatrist, Sierra Valdez, at [facility]. The last 1 did not go through, and she was contacted by [facility]. New referral placed. She's had anxiety since age 7 years old. Long standing history of AM nausea and vomiting attributed to this. She takes Prilosec for GERD, and this reduces episodes. She also has a history of depression and possibly bipolar disorder, but they are still in the process of diagnosis. I prescribed Zofran to use as needed. At her last appointment we discussed alternating constipation and diarrhea. No b lood in stools. She's had Lyme disease. Requested testing for tick borne disease. She had blood work drawn today. Gastroenterology referral was also placed, and she is going to schedule it once her new insurance is activated with her job. She takes Albuterol as needed for asthma which is triggered by illness. She gets eczema sometimes on her ears and arms. She has been prescribed topical desonide to use as needed in the past. She uses CeraVe to moisturize. I ordered the desonide for her. Review topical steroid side effects and administration. ROS: Constitutional: No unexplained weight loss, fever, chills, fatigue or night sweats. Eyes: No vision changes, blurry vision, double vision, eye pain, eye redness, eye discharge. ENT: No hearing loss, sneezing, congestion, runny nose or sore throat. Respiratory: No shortness of breath, cough or sputum production. Cardiovascular: No chest pain, chest pressure or chest discomfort. No palpitations or pedal edema. Gastrointestinal: No anorexia, No abdominal pain or blood in stool. Genitourinary: No dysuria, hematuria, urinary frequency. Neurologic: No headache, dizziness, syncope, unilateral weakness, ataxia, numbness or tingling in the extremities. Musculoskeletal: No muscle pain, back pain, joint pain or swelling. Hematologic/Lymphatics: No bleeding or bruising. No painful lymph nodes. Skin: see HPI, patient has seen Dermatology to check moles Endocrine: No cold or heat intolerance. No polyuria or polydipsia. Psychiatric: see HPI Physical exam: Constitutional: Alert, in no distress. Head: Normocephalic. Eyes: Pupils are equal, round and reactive to light. Extraocular muscles intact. Ear, Nose and Throat: Canals clear. TMs normal. Normal nasal mucosa. No nasal discharge. No oral lesions. Neck: Supple, Full range of motion. No lymphadenopathy. No palpable thyroid masses. Respiratory: Clear to auscultation. Cardiovascular: S1 S2 regular. No murmurs Gastrointestinal: Abdomen soft, non-tender, non-distended. Normal bowel sounds. No palpable masses. Neurologic: No focal neurological deficits. Symmetric patellar reflexes. Moves all extremities spontaneously. Sensation intact bilaterally. Skin: Mild, eczematous rash on right external ear Musculoskeletal: No gross deformities. Normal range of motion. Extremities: Warm and well perfused. No clubbing, cyanosis or edema. 3+ peripheral pulses bilaterally. Psychiatric: Normal mood and affect [facility] Medical History (Updated 05/30/24 @ 10:31 by CARMEN Orozco) Routine physical examination History of pneumonia Nausea and vomiting Alternating constipation and diarrhea Eczema Depression Tremor of both hands Hypertension Asthma H pylori ulcer GERD (gastroesophageal reflux disease) Alcohol abuse Anxiety Surgical History (Updated 05/08/24 @ 16:22 by Brenden Porter MA) No pertinent past surgical history Family History (Updated 05/08/24 @ 16:24 by Brenden Porter MA) Father Mental health disorder Substance use Hypertension Brother Substance use Asthma Mother High cholesterol Diabetes Thyroid disorder Maternal Grandmother Clotting disorder Breast cancer Maternal Grandfather Clotting disorder Social History (Updated 12/31/23 @ 09:41 by Taryn Garcia DO) Housing: Apartment Patient Tobacco Use Status: Never used Tobacco e-Cigarette/Vaping Use: Never Used Substance Use Type: Marijuana service: No Current occupational status: employed and unemployed 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 1. Little interest or pleasure in doing things: several days 2. Feeling down, depressed, or hopeless: several days 3. Trouble falling or staying asleep, or sleeping too much: several days 4. Feeling tired or having little energy: several days 5. Poor appetite or overeating: not at all 6. Feeling bad about yourself - or that you are a failure or have let yourself or your family down: not at all 7. Trouble concentrating on things, such as reading the newspaper or watching television: not at all 8. Moving or speaking so slowly that other people could have noticed. Or the opposite - being so fidgety or restless that you have been moving around a lot more than usual: not at all 9. Thoughts that you would be better off or of hurting yourself in some way: not at all Total score: 4 Depression Screening Interpretation: Positive Depression Screening Follow-up: Existing condition and In treatment Depression Screening Done: Yes 31477 - PHQ-9 Billing: Yes Source: Developed by Drs. Sg Stanford, Shelley Aj, Toribio Koehler and colleagues, with an educational bolivar from [employer]. Thrive Questionnaire Date Thrive assessed: 05/29/24 I am a: Patient What is your living situation today?: I have a steady place to live Within the past 12 months, did the food you bought not last and you didn't have the money to get more?: Never true Within the past 12 months, did you worry whether your food would run out before you got money to buy more?: Never true Do you have trouble paying for medicines?: No Do you have trouble getting transportation to medical appointments?: Yes Do you have trouble paying your heating and electricity bill?: No Do you have trouble taking care of your child, family member or friend?: No Do you have trouble with day-to-day activities such as bathing, preparing meals, shopping, managing finances, etc.?: No Are you currently unemployed and looking for a job?: No Are you interested in more education?: No Please select the resources that you would like help with: None Currently or been in a relationship where the following occur: No concerns reported THRIVE Score: 1 AUDIT C Alcohol Use Questionnaire (AUDIT-C) 1. How often do you have a drink containing alcohol?: Monthly or less 2. How many drinks containing alcohol do you have on a typical day when you are drinking?: 1 or 2 3. How often do you have six or more drinks on one occasion?: Never Total Score: 1 MELANIE-7 AMB Questionnaire MELANIE-7 Date MELANIE - 7 assessed: 05/29/24 Feeling nervous, anxious, or on edge: 1 = Several days Not being able to stop or control worryin = Several days Worrying too much about different things: 1 = Several days Trouble relaxin = Several days Being so restless that it is hard to sit still: 0 = Not at all Becoming easily annoyed or irritable: 0 = Not at all Feeling afraid as if something awful might happen: 0 = Not at all Total MELANIE-7 score (0-4 normal; 5-9 mild; 10-14 moderate; 15-21 severe): 4 Source: Developed by Drs. Sg Stanford, Shelley Aj, Toribio Koehler and colleagues, with an educational bolivar from [employer]. MELANIE-7 Assessment Billing MELANIE-7 Assessment Tool: MELANIE-7 Assessment 08333 ACT Questionnaire In the past 4 weeks, how much of the time did your asthma keep you from getting as much done at work, school or at home?: None of the time During the past 4 weeks, how often have you had shortness of breath?: Not at all During the past 4 weeks, how often did your asthma symptoms wake you up at night or earlier than usual in the morning?: Not at all During the past 4 weeks, how often have you had to use your rescue inhaler or nebulizer medication?: Not at all How would you rate your asthma control during the past 4 weeks?: Well controlled Score: 24 Physical exam (Primary Care) Vital Signs: Last Vital Signs Temp 97.8 F 05/29/24 16:04 Pulse 86 05/29/24 16:04 Resp 16 05/29/24 16:04 BP 118/74 05/29/24 16:04 Pulse Ox 98 05/29/24 16:04 Oxygen Delivery Method Room Air 05/29/24 16:04 BMI result Body Mass Index 20.7 Tobacco/Smoking Status: Tobacco use Status Tobacco use date assessed 05/29/24 05/29/24 16:03 Patient Tobacco Use Status Never used Tobacco 05/29/24 15:58 e-Cigarette/Vaping Use Never Used 05/29/24 15:58 PHQ-9: PHQ-9 Score PHQ-9: Total score 4 05/29/24 16:32 Depression Screening Interpretation: Positive Depression Screening Follow-up: Existing condition and In treatment Thrive Assessment: Date of Thrive Assessment Date Thrive assessed 05/29/24 05/29/24 16:09 Currently or been in a relationship where the following occur: No concerns reported Assessment and Plan Assessment & Plan (1) Routine physical examination: Code(s): Z00.00 - Encounter for general adult medical examination without abnormal findings Plan: Patient is seen today for a routine physical. As part of this visit we reviewed the following issues, which are considered and essential part of preventative health in this age group: - Breast Cancer screening - Annual Body Joiner exam- referred - Blood pressure screening - Cholesterol screening - Osteoporosis prevention including calcium/vitamin D intake, weight bearing exercise & smoking cessation - Nutritional and exercise counseling - Counseling of injury prevention including fire prevention, smoke alarms and seat belt usage - Prevention of and/or testing for infectious diseases - Education about skin cancer - Recommendations about immunizations - Recommendation of an eye exam - Screening for substance abuse Plan Follow up in 1 year for annual physical exam or sooner as needed. Orders: Referrals Psychiatry Referral F32.A - Depression, unspecified SOFT HAT BINDER Referral Z01.419 - Encounter for gynecological examination (general) (routine) without abnormal findings Medications: New desonide 0.05% 1 appl topical BID PRN 60 grams 0RF eczema 7 days ondansetron 4 mg PO Q8H PRN 30 tabs 1RF nausea and vomiting Changed From omeprazole 20 mg PO BID 42 caps 0RF To omeprazole 20 mg PO DAILY 90 caps 1RF 90 days Coding Level of Care Code Est Pt Prev Care 18-39y(83387) Diagnoses Routine physical examination Z00.00 Additional Codes MELANIE-7 Assessment Billing - MELANIE-7 Assessment Tool: MELANIE-7 Assessment 49096 ([id number])
[2024-05-29 16:04] VITALS: BP 118/74; PULSE 86; RESP 16; TEMP 36.6; O2SAT 98; BMI 20.7
== END 2024-05-29 17:01 | disposition home or self-care (01) ==
PROVIDERS: PCP Physician Assistant Medical; Visit Provider Physician Assistant Medical
DX: Z00.00 Encounter for general adult medical examination without abnormal findings (principal)

== ENCOUNTER → 2024-12-12 08:20 | Outpatient (BNVA) | payer OTHER, SELFPAY | PROVIDERS: PCP Physician Assistant Medical; Visit Provider Nurse Practitioner Family | DX: L20.89 Other atopic dermatitis (principal); F41.9 Anxiety disorder, unspecified; R11.2 Nausea with vomiting, unspecified | CPT/HCPCS: 99212 ==

== ENCOUNTER 2024-12-12 08:58 | Outpatient (AMB) | payer OTHER, SELFPAY ==
--- NOTE | 2024-12-12 08:59 | AM.OFFWIN_ITS ---
Intake Vital Signs 12/12/24 09:07 Height 5 ft 7 in Weight 135 lb 8 oz BMI 21.2 BP 122/78 Blood Pressure Location Lt brachial Position Sitting Respiration 13 Pulse 86 Pulse Source Pulse Oximeter Temp 97.4 F Temp Source Oral Pulse Oximetry (%) 100 Oxygen Delivery Method Room Air Intake Visit Reasons: rash on arm Intake Note: Patient c/o rash all over body x 1 week, and patient also c/o vomiting from anxiety every morning. Patient Tobacco Use Status: Never used Tobacco Allergies No Known Allergies [No Known Allergies*] Allergy (Verified 12/12/24 09:11) Medication List - Last Reconciled 12/12/24 by Ya Mcconnell, ANSWERING SERVICE AGENT- albuterol sulfate 90 mcg/actuation (Ventolin HFA) inhalation alprazolam mg PO desonide 0.05% 1 appl topical BID PRN 7 days duloxetine 20 mg PO BID lamotrigine 100 mg PO BID mupirocin 2% 1 appl topical BID-TID omeprazole 20 mg PO DAILY 90 days propranolol ER 60 mg PO DAILY Do you need a note to return to daycare/school/sports/work: Yes HPI HPI Comments History of Present Illness Details History - The patient is a 39-year-old female pr esenting with a generalized rash. - Rash noted to be itchy and spreading o maddy the past week, initially thought to be contact dermatitis or eczema. - Symptoms began beneath the arms and lo wer limbs, with escalation in severity. - Treatment adjustments include resuming free and clear detergent and continued use of Dove and CeraVe products. - Prior treatments involved desonide for milder areas and betamethasone for extensive regions. She does not have betamethosone at current time. Loss of insurance, unable to see PCP; having panic attacks. Panic attacks cause vomiting, this is long standing - Anxiety episodes result in morning meredith sea and vomiting. - Vomiting correlates with heightened an xiety, particularly since recent unemployment. - Last prescription of Zofran, used to c ontrol nausea, has been depleted. - Reports a familial essential tremor; c ondition suspected to exhibit genetic predisposition. Does not have derm; cannot get referral w/ insurance issues Physical Exam Awake alert Crying and tearful Generally tremulous Cooperative Atopic dermatitis w/ some secondary excoriations w/o infection to right anterior lower leg; small patches on back of shoulders and mid back. Otherwise skin clear Discussion Notes I discussed the diagnosis and management plans with the patient in detail. The primary focus was addressing the generalized rash, likely related to eczema, and prescribing betamethasone lotion to be applied twice daily to affected areas while avoiding indiscriminate use over unaffected areas. I recommended Vistaril as an adjunct therapy to address both itching associated with the rash and anxiety symptoms. This medication was addressed with the patient for three times daily use as needed, assuring it would not interact adversely with existing medications. Additionally, I talked about hydroxyzine to assist in controlling nausea and vomiting attributed to anxiety. I proposed involvement with a community elevator adjuster, available in the office, to offer support during the insurance transition period. I discussed implementing lifestyle adjustments and following up with the primary care provider, Jazmin Nagel, once insurance issues are resolved. Assessment and Plan 1. Eczema: Management includes localized application of betamethasone scaled to each affected area to mitigate flare-ups and optimize skin response. 2. Anxiety: Addressed with Vistaril impl ementation to manage autonomic arousal contributing to generalized distress and skin condition. 3. Nausea and vomiting secondary to anxi ety: Hydroxyzine is indicated for not only alleviating nausea but also controlling anxiety-induced gastrointestinal distress. Patient Instructions - Use betamethasone on identified rash a reas twice daily; avoid using on unaffected skin. - Take Vistaril as needed up to three ti mes daily for itching or heightened anxiety. - Start hydroxyzine to manage nausea and take in combination with morning medications. - Reassess with your primary care provid er after resolving insurance issues. - Brief intervention w/ com ehsan at time of visit to help asst in SDOH issues Consent Patient was informed and verbally consented to the use of an ambient scribe for clinic note documentation during this visit. Total time spent caring for the patient today was 30 minutes. This includes time spent before the visit reviewing the chart, time spent during the visit, and time spent after the visit on documentation, reviewing laboratory results, diagnostic imaging, medications, performing a medically necessary evaluation, counseling on diagnoses, care coordination, ordering appropriate tests, ordering appropriate medications, review of tests performed by other providers, reporting test results with the patient, communication with other healthcare providers. [facility] Medical History (Updated 12/12/24 @ 09:31 by Ya Mcconnell, ANSWERING SERVICE AGENT-BC) Alcohol abuse Alternating constipation and diarrhea Anxiety Asthma Depression Eczema GERD (gastroesophageal reflux disease) H pylori ulcer History of pneumonia Hypertension Nausea and vomiting Routine physical examination Tremor of both hands Surgical History (Updated 05/08/24 @ 16:22 by Brenden Porter MA) No pertinent past surgical history Family History (Updated 05/08/24 @ 16:24 by Brenden Porter MA) Father Mental health disorder Substance use Hypertension Brother Substance use Asthma Mother High cholesterol Diabetes Thyroid disorder Maternal Grandmother Clotting disorder Breast cancer Maternal Grandfather Clotting disorder Social History (Updated 12/31/23 @ 09:41 by Taryn Garcia DO) Housing: Apartment Patient Tobacco Use Status: Never used Tobacco e-Cigarette/Vaping Use: Never Used Substance Use Type: Marijuana service: No Current occupational status: employed and unemployed 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 [employer] Cognitive needs: No Hearing needs: No Vision needs: No Physical Exam Vital Signs: Last Vital Signs Temp 97.4 F 12/12/24 09:07 Pulse 86 12/12/24 09:07 Resp 13 12/12/24 09:07 BP 122/78 12/12/24 09:07 Pulse Ox 100 12/12/24 09:07 Oxygen Delivery Method Room Air 12/12/24 09:07 BMI result Body Mass Index 21.2 Assessment & Plan Assessment & Plan (1) Anxiety: Code(s): F41.9 - Anxiety disorder, unspecified (2) Nausea and vomiting: Code(s): R11.2 - Nausea with vomiting, unspecified Qualifiers: Vomiting type: unspecified Qualified Code(s): R11.2 - Nausea with vomiting, unspecified (3) Atopic dermatitis: Code(s): L20.9 - Atopic dermatitis, unspecified Qualifiers: Atopic dermatitis type: flexural Qualified Code(s): L20.89 - Other atopic dermatitis Plan . Medications: New betamethasone dipropionate 0.05% 1 appl topical BID 60 mL 2RF hydroxyzine HCl 10 mg PO TID PRN 90 tabs 0RF itching or anxiety Coding Level of Care Code Est Pt Level 4 (55302) Diagnoses Anxiety F41.9 Nausea and vomiting, unspecified vomiting type R11.2 Vomiting type: unspecified Flexural atopic dermatitis L20.89 Atopic dermatitis type: flexural
[2024-12-12 09:07] VITALS: BP 122/78; PULSE 86; RESP 13; TEMP 36.3; O2SAT 100; BMI 21.2
--- OUTSIDE RECORDS SUMMARY | 2024-12-12 09:33 | XMS_ITS | Clinical Summary ---
Author Organization [facility] Address [address] [place] [id number] Phone Care Team Providers Care Cesspool Cleaner Name Role Phone Vonnie Sultana MD Primary Care Provider [phone] Allergies No known active allergies Medications ALPRAZolam (XANAX) 1 mg tablet Take 1 tablet (1 mg total) by mouth 2 (two) times a day if needed. Max Daily Amount: 2 mg Active DULoxetine (CYMBALTA) [address] capsule Take 2 capsules (40 mg total) by mouth 1 (one) time each day in the morning. Active lamoTRIgine (LaMICtal) 100 mg tablet Take 1 tablet (100 mg total) by mouth 2 (two) times a day. Active omeprazole (PriLOSEC) [address] capsule Take 1 capsule (20 mg total) by mouth 1 (one) time each day. 4 Active folic acid (FOLVITE) 1 mg tablet Take 1 tablet (1 mg total) by mouth 1 (one) time each day. 30 each 5 09/11/19 26 Active lidocaine 4 % patch Apply 1 patch topically 1 (one) time each day. 30 patch 5 Active magnesium, amino acid chelate, 133 mg tablet Take 1 tablet (133 mg total) by mouth 2 (two) times a day. 60 tablet 5 09/10/19 26 Active metoprolol tartrate (LOPRESSOR) 25 mg tablet Take 1 tablet (25 mg total) by mouth 2 (two) times a day. 60 each 5 09/10/19 26 Active Active Problems Problem Noted Date Diagnosed Date Fall at home 09/10/2024 Hypokalemia 09/10/2024 Hypomagnesemia 09/10/2024 Alcohol withdrawal syndrome without complication 09/09/2024 Medical History Medical History Date Comments Lyme disease PTSD (post-traumatic stress disorder) Asthma Depression Essential tremor GERD (gastroesophageal reflux disease) Anxiety Family History Medical History Relation Name Comments Alcohol abuse Father Leukemia Maternal Grandmother Diabetes Mother Relation Name Status Comments Father Maternal Grandmother Mother Social History Tobacco Use Types Packs/Day Years Used Date Smoking Tobacco: Never Smokeless Tobacco: Never Tobacco Cessation:Counseling Given: No Alcohol Use Standard Drinks/Week Comments Yes 0 (1 standard drink = 0.6 oz pur e alcohol) a lot Housing Instability Answer Date Recorde d Are you worried that in the next 2 months you may not have stable housing? No 09/10/2024 Food Access & Nutrition Answer Date Rec orded Do you have access to a vari ety of food including fruits and vegetables? Yes 09/10/2024 Health Literacy Answer Date Recorded How often do you need to hav e someone help you when you read instructions, pamphlets, or other written material from your doctor or pharmacy? Never 09/10/2024 Caregiver: How often do you need to have someone help you when you read instructions, pamphlets, or other written material from your doctor or pharmacy? Not on file 09/10/2024 Financial Risk Answer Date Recorded How hard is it for you to pa y for the very basics like food, housing, medical care, and air conditioning / heating? Not very hard 09/10/2024 Transportation Answer Date Recorded Has the lack of transportati on kept you from meetings, work, or from getting things needed for daily living? No Has the lack of transportati on kept you from medical appointments or from getting medications? No 09/10/2024 Social Isolation Answer Date Recorded How often do you feel lonely or isolated from those around you? Patient declined 09/10/2024 Food Risk Answer Date Recorded Within the past 12 months we worried whether our food would run out before we got money to buy more. Never true 09/10/2024 Within the past 12 months th e food we bought just didn't last and we didn't have money to get more. Never true 09/10/2024 Dependent Care Answer Date Recorded Do you need help finding or paying for care for your loved ones. For example, children's book author or elderly care for an older adult? No 09/10/2024 Education Answer Date Recorded Do you think completing more education or training, like finishing a GED, going to college, or learning a trade, would be helpful for you? Patient declined 09/10/2024 Employment and Income Answer Date Recor ded During the last four weeks, have you been actively looking for work? Patient declined 09/10/2024 Living Situation Answer Date Recorded What is your living situation? 0 09/10/2024 Interpersonal Safety Answer Date Record ed Physical Abuse 09/10/2024 Verbal Abuse 09/10/2024 Comments Unknown Sex and Gender Information Value Date Recorded Sex Assigned at Female 09/10/2024 6:02 AM EST Legal Sex Female 1:17 PM EST Gender Identity Female 09/10/2024 6:02 AM EST Sexual Orientation Choose not to disclose 2024 6:02 AM EST Obstetrics History Last Filed Vital Signs Vital Sign Reading Time Taken Comments Blood Pressure 156/108 09/10/2024 8:43 AM EST Pulse 89 09/10/2024 8:43 AM EST Temperature 36.4 ??C (97.6 ??F) 09/10/2024 8:43 AM ES T Respiratory Rate 17 09/10/2024 8:43 AM EST Oxygen Saturation 100% 09/10/2024 8:43 AM EST Inhaled Oxygen Concentration - - Weight 59 kg (130 lb) 09/09/2024 1:33 PM EST Height 170.2 cm (5' 7 ) 09/09/2024 1:33 PM EST Body Mass Index 20.36 09/09/2024 1:33 PM EST Plan of Treatment Health Maintenance Due Date Last Done Comments Hepatitis B Vaccines (1 of 3 - 19+ 3-dose series) 2004 Pneumococcal Vaccine: Pediatrics (0 to 5 Years) and At-Risk Patients (6 to 64 Years) (1 of 2 - PCV) 2004 HPV Vaccines (3 - 3-dose series) 02/28/2011 12/06/2010, 08/18/2010 Cervical Cancer Screening: Pap Smear 03/06/2021 03/06/2018 DTaP,Tdap,and Td Vaccines (2 - Td or Tdap) 03/31/2024 03/31/2014 COVID-19 Vaccine ( season) 2024 12/29/2020 Depression Screening 09/09/2024 HIV Screening 09/09/2024 Hepatitis C Screening 09/09/2024 Influenza Vaccine (Season Ended) 2025 06/07/2022, 08/06/2019, 06/26/2018, Additional history exists Social Influencers of Health Screening 09/10/2025 09/10/2024 Meningococcal ACWY Vaccine Aged Out 05/05/2003 N o longer eligible based on patient's age to complete this topic HIB Vaccines Aged Out No longer eligi ble based on patient's age to complete this topic Hepatitis A Vaccines Aged Out No long er eligible based on patient's age to complete this topic IPV Vaccines Aged Out No longer eligi ble based on patient's age to complete this topic MMR Vaccines Aged Out No longer eligi ble based on patient's age to complete this topic Meningococcal B Vacine Aged Out No lo nger eligible based on patient's age to complete this topic RSV Immunization Patients Under 20 months Aged Out No longer eligible based on patient's age to complete this topic Varicella Vaccines Aged Out No longer eligible based on patient's age to complete this topic Insurance [facility] Advance Directives * Full Code - Default (Latest Code Status on File) Date Activated Date Inactivated Comments 09/09/2024 10:46 PM 09/10/2024 7:14 PM This is or cheryl is used when code status has not been discussed with the patient, or code status is otherwise unknown/unconfirmed To update the patient's code status, place a code status order. Do not modify or discontinue any currently active code status orders. Care Teams Cesspool Cleaner Relationship Specialty Start Date End Date Vonnie Sultana MD PCP - General Internal Medicine 09/09/24
== END 2024-12-12 09:39 | disposition home or self-care (01) ==
PROVIDERS: PCP Physician Assistant Medical; Visit Provider Nurse Practitioner Family
DX: F41.9 Anxiety disorder, unspecified (principal); R11.2 Nausea with vomiting, unspecified; L20.89 Other atopic dermatitis

== ENCOUNTER 2025-07-23 11:33 | Outpatient (AMB) | payer OTHER, SELFPAY ==
--- NOTE | 2025-07-23 11:39 | A.OFFPC_ITS ---
Vital Signs 07/23/25 11:44 07/23/25 12:20 Height 5 ft 7 in Weight 135 lb 6 oz BMI 21.2 BP 122/80 Blood Pressure Location Rt brachial Position Sitting Respiration 14 Pulse 122 H 100 Pulse Source Pulse Oximeter Temp 98.6 F Temp Source Temporal Artery Scan Pulse Oximetry (%) 98 Oxygen Delivery Method Room Air Intake Visit Reasons: med follow up Intake Note: Brook presents in the office today for a medication follow up. Allergies No Known Allergies (No Known Allergies*) Allergy (Verified 07/23/25 11:42) Tobacco use date assessed: 07/23/25 Dental Screening Dental Screen Date: 07/23/25 Did you have a dental visit in the last 12 months?: Yes Did you have a dental problem in the last 6 months where you did not have access to dental care?: No Was dental information given to patient?: Patient has dentist HPI HPI Comments History of Present Illness Details 39 year old patient with depression, anx iety and GERD presents for follow up. Patient is seeing a therapist and psychiatrist at [facility]. Her grandmother within the past couple of weeks. She spent a lot of time with her. She said there is also some problems within the family following her . Her left shoulder hurt for the past 2-1/2 weeks, but it is getting better. She has been lifting some heavy boxes. She uses lidocaine patches which helps. She is going to start taking propranolol regularly. She has a lot of physical symptoms of anxiety including facial flushing and tachycardia. She continues to endorse possible symptoms of IBS including alternating diarrhea and constipation. She also has GERD. In the morning she sometimes has nausea and vomiting. She notices it is worse when she has coffee. This also increases her anxiety. She has noticed a link between stress and GI symptoms. She has a history of H pylori. Her last test was negative. Her stomach has been worse within the past couple of weeks. Denies abdominal pain, fevers, chills, blood in stools. Patient has an itchy red rash on the inside of her left ankle. She has a history of eczema. Patient says initially it was a bug bite in the summer, but it never went away. It is not painful. There is no discharge. Due for mammogram. Ordered. Defers flu vaccine. Patient said she will get it at the pharmacy another time. ROS: Constitutional: No fevers or chills. Respiratory: No shortness of breath Cardiovascular: No chest pain Gastrointestinal: See HPI Neurologic: No numbness or tingling Musculoskeletal: See HPI Skin: see HPI Psychiatric: see HPI Physical exam: Constitutional: Alert, in no distress. Respiratory: Clear to auscultation. Cardiovascular: S1 S2 regular. No murmurs Gastrointestinal: Abdomen soft, non-tender, non-distended. Normal bowel sounds. No palpable masses Skin: Mildly erythematous papular eczematous patch on the left inner ankle Musculoskeletal: Patient has full range of motion of the shoulders. Nontender to palpation. The empty can maneuver on the left side produces pain. Shoulder strength 5/5 bilaterally. Extremities: Warm and well perfused. No clubbing, cyanosis or edema. Psychiatric: Anxious appearing [facility] Medical History (Updated 07/23/25 @ 13:26 by CARMEN Orozco) Dermatitis Routine physical examination History of pneumonia Nausea and vomiting Alternating constipation and diarrhea Eczema Depression Tremor of both hands Hypertension Asthma H pylori ulcer GERD (gastroesophageal reflux disease) Alcohol abuse Anxiety Surgical History (Updated 05/08/24 @ 16:22 by Brenden Porter MA) No pertinent past surgical history Family History Father Mental health disorder Substance use Hypertension Brother Substance use Asthma Mother High cholesterol Diabetes Thyroid disorder Maternal Grandmother Clotting disorder Breast cancer Maternal Grandfather Clotting disorder Social History (Updated 07/23/25 @ 11:44 by Cinda Gramajo CMA) Housing: Apartment Alcohol intake: current Alcohol intake frequency: 3 or more drinks per day Patient Tobacco Use Status: Never used Tobacco e-Cigarette/Vaping Use: Never Used Second Hand Smoke Exposure: No Substance Use Type: Marijuana service: No Current occupational status: employed and unemployed 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 1. Little interest or pleasure in doing things: more than half the days 2. Feeling down, depressed, or hopeless: more than half the days 3. Trouble falling or staying asleep, or sleeping too much: more than half the days 4. Feeling tired or having little energy: more than half the days 5. Poor appetite or overeating: not at all 6. Feeling bad about yourself - or that you are a failure or have let yourself or your family down: not at all 7. Trouble concentrating on things, such as reading the newspaper or watching television: not at all 8. Moving or speaking so slowly that other people could have noticed. Or the opposite - being so fidgety or restless that you have been moving around a lot more than usual: not at all 9. Thoughts that you would be better off or of hurting yourself in some way: not at all Total score: 8 Depression Screening Interpretation: Positive Depression Screening Follow-up: Existing condition Depression Screening Done: Yes 46064 - PHQ-9 Billing: Yes Source: Developed by Drs. Sg Stanford, Shelley Aj, Toribio Koehler and colleagues, with an educational bolivar from [employer]. Thrive Questionnaire Date Thrive assessed: 07/23/25 I am a: Patient What is your living situation today?: I have a steady place to live Within the past 12 months, did the food you bought not last and you didn't have the money to get more?: Never true Within the past 12 months, did you worry whether your food would run out before you got money to buy more?: Never true Do you have trouble paying for medicines?: I choose not to answer this question Do you have trouble getting transportation to medical appointments?: Yes Do you have trouble paying your heating and electricity bill?: I choose not to answer this question Do you have trouble taking care of your child, family member or friend?: No Do you have trouble with day-to-day activities such as bathing, preparing meals, shopping, managing finances, etc.?: I choose not to answer this question Are you currently unemployed and looking for a job?: Yes Are you interested in more education?: Yes Please select the resources that you would like help with: Transportation Currently or been in a relationship where the following occur: I choose not to answer THRIVE Score: 1 MELANIE-7 AMB Questionnaire MELANIE-7 Date MELANIE - 7 assessed: 07/23/25 Feeling nervous, anxious, or on edge: 1 = Several days Not being able to stop or control worryin = Several days Worrying too much about different things: 1 = Several days Trouble relaxin = Several days Being so restless that it is hard to sit still: 1 = Several days Becoming easily annoyed or irritable: 1 = Several days Feeling afraid as if something awful might happen: 0 = Not at all Total MELANIE-7 score (0-4 normal; 5-9 mild; 10-14 moderate; 15-21 severe): 6 Source: Developed by Drs. Sg Stanford, Shelley Aj, Toribio Koehler and colleagues, with an educational bolivar from [employer]. EMLANIE-7 Assessment Billing MELANIE-7 Assessment Tool: MELANIE-7 Assessment 37607 Physical exam (Primary Care) Vital Signs: Last Vital Signs Temp 98.6 F 07/23/25 11:44 Pulse 122 H 07/23/25 11:44 Resp 14 07/23/25 11:44 BP 122/80 07/23/25 11:44 Pulse Ox 98 07/23/25 11:44 Oxygen Delivery Method Room Air 07/23/25 11:44 BMI result Body Mass Index 21.2 Tobacco/Smoking Status: Tobacco use Status Tobacco use date assessed 07/23/25 07/23/25 11:51 Patient Tobacco Use Status Never used Tobacco 07/23/25 11:44 e-Cigarette/Vaping Use Never Used 07/23/25 11:44 PHQ-9: PHQ-9 Score PHQ-9: Total score 8 07/23/25 11:51 Depression Screening Interpretation: Positive Depression Screening Follow-up: Existing condition Thrive Assessment: Date of Thrive Assessment Date Thrive assessed 07/23/25 07/23/25 11:51 Currently or been in a relationship where the following occur: I choose not to answer Coding Level of Care Code Est Pt Level 4 (77909) Complex EM visit Add On G2211 Diagnoses Anxiety F41.9 Gastroesophageal reflux disease, unspecified whether esophagitis present K21.9 Esophagitis presence: esophagitis presence not specified Alternating constipation and diarrhea R19.8 Nausea and vomiting, unspecified vomiting type R11.2 Vomiting type: unspecified Dermatitis L30.9 Left shoulder pain M25.512 Additional Codes MELANIE-7 Assessment Billing - MELANIE-7 Assessment Tool: MELANIE-7 Assessment 78349 ([id number]) PHQ-9 - 29139 - PHQ-9 Billing: Yes ([id number]) Assessment & Plan Assessment & Plan (1) Anxiety: Code(s): F41.9 - Anxiety disorder, unspecified Category: Medical (2) GERD (gastroesophageal reflux disease): Code(s): K21.9 - Gastro-esophageal reflux disease without esophagitis Category: Medical Qualifiers: Esophagitis presence: esophagitis presence not specified Qualified Code(s): K21.9 - Gastro-esophageal reflux disease without esophagitis (3) Alternating constipation and diarrhea: Code(s): R19.8 - Other specified symptoms and signs involving the digestive system and abdomen Category: Medical (4) Nausea and vomiting: Code(s): R11.2 - Nausea with vomiting, unspecified Category: Medical Qualifiers: Vomiting type: unspecified Qualified Code(s): R11.2 - Nausea with vomiting, unspecified (5) Dermatitis: Code(s): L30.9 - Dermatitis, unspecified Category: Medical (6) Left shoulder pain: Code(s): M25.512 - Pain in left shoulder Plan The patient will have lab work completed. Avoid spicy and acidic foods. Take Prilosec 20 mg daily for the next 2 weeks and then refer back to as needed use. Avoid NSAIDs Prescribed topical betamethasone to use for 7 days for the dermatitis on her ankle. Wash hands after use and do not apply to other areas. Reviewed side effects of topical steroids. She is following with a therapist and psychiatrist now for her medications. She is restarting propranolol daily. Shoulder strain versus rotator cuff tendonitis. Strength intact. This is improving. Continue conservative management. Call if this does not resolve. She will schedule a physical. Orders: Orders Vitamin B12 Today F41.9 - Anxiety disorder, unspecified, K21.9 - Gastro- esophageal reflux disease without esophagitis, L30.9 - Dermatitis, unspecified, R11.2 - Nausea with vomiting, unspecified, R19.8 - Other specified symptoms and signs involving the digestive system and abdomen, Z91.89 - Other specified personal risk factors, not elsewhere classified Comprehensive Met. Panel Today F41.9 - Anxiety disorder, unspecified, K21.9 - Gastro-esophageal reflux disease without esophagitis, L30.9 - Dermatitis, unspecified, R11.2 - Nausea with vomiting, unspecified, R19.8 - Other specified symptoms and signs involving the digestive system and abdomen H pylori Ag Stool Today F41.9 - Anxiety disorder, unspecified, K21.9 - Gastro- esophageal reflux disease without esophagitis, L30.9 - Dermatitis, unspecified, R11.2 - Nausea with vomiting, unspecified, R19.8 - Other specified symptoms and signs involving the digestive system and abdomen TSH reflex Free T4 Today F41.9 - Anxiety disorder, unspecified, K21.9 - Gastro- esophageal reflux disease without esophagitis, L30.9 - Dermatitis, unspecified, R11.2 - Nausea with vomiting, unspecified, R19.8 - Other specified symptoms and signs involving the digestive system and abdomen Complete Blood Count Auto Diff Today F41.9 - Anxiety disorder, unspecified, K21.9 - Gastro-esophageal reflux disease without esophagitis, L30.9 - Dermatitis, unspecified, R11.2 - Nausea with vomiting, unspecified, R19.8 - Other specified symptoms and signs involving the digestive system and abdomen Lipase Today F41.9 - Anxiety disorder, unspecified, K21.9 - Gastro-esophageal reflux disease without esophagitis, L30.9 - Dermatitis, unspecified, R11.2 - Nausea with vomiting, unspecified, R19.8 - Other specified symptoms and signs involving the digestive system and abdomen Amylase Today F41.9 - Anxiety disorder, unspecified, K21.9 - Gastro-esophageal reflux disease without esophagitis, L30.9 - Dermatitis, unspecified, R11.2 - Nausea with vomiting, unspecified, R19.8 - Other specified symptoms and signs involving the digestive system and abdomen Lipid Panel Today E78.5 - Hyperlipidemia, unspecified, F41.9 - Anxiety disorder, unspecified, K21.9 - Gastro-esophageal reflux disease without esophagitis, L30.9 - Dermatitis, unspecified, R11.2 - Nausea with vomiting, unspecified, R19.8 - Other specified symptoms and signs involving the digestive system and abdomen MM screening mammo BI Today Z12.31 - Encounter for screening mammogram for malignant neoplasm of breast Referrals Gastroenterology Referral K21.9 - Gastro-esophageal reflux disease without esophagitis, R11.2 - Nausea with vomiting, unspecified, R19.8 - Other specified symptoms and signs involving the digestive system and abdomen Medications: New ondansetron 4 mg PO Q8H PRN 60 tabs 0RF nausea and vomiting betamethasone, augmented 0.05 % 1 appl topical BEDTIME 15 grams 0RF 7 days Discontinued betamethasone dipropionate 0.05% Discontinued Reason: Doctor's Order 1 appl topical BID 60 mL 2RF
[2025-07-23 11:44] VITALS: BP 122/80; PULSE 122; RESP 14; TEMP 37; O2SAT 98; BMI 21.2
[2025-07-23 12:20] VITALS: PULSE 100
--- OUTSIDE RECORDS SUMMARY | 2025-07-23 14:44 | XMS_ITS | Encounter Summary ---
Author Organization [facility] Address [id number] [place] [address] Phone Care Team Providers Care Maintenance Clerk Name Role Phone Atiya Boone MD Primary Care Provider [phone] Unknown, Unknown Primary Care Provider Shaunna mota Encounter Details Date Type Department Care Team (Late st Contact Info) Description 03/24/2022 Procedure Pass [facility], Ct Scan - [address] [address] Social History Tobacco Use Types Packs/Day Years Used Date Smoking Tobacco: Never Smokeless Tobacco: Never Alcohol Use Standard Drinks/Week Comments Yes 2 (1 standard drink = 0.6 oz pur e alcohol) Comments Unknown Sex and Gender Information Value Date Recorded Sex Assigned at Not on file Legal Sex Female 7:02 PM EST Gender Identity Female 03/24/2022 5:24 PM EDT Sexual Orientation Not on file documented as of this encounter Functional Status * Calculated C-SSRS Risk Score (Lifetime/Recent) Answer Date of Assessment Author No Risk Indicated 03/24/2022 5:24 PM EDT Claudine De Leon RN * [place] Suicide Severity Rating Scale (Screener/Recent Self-Report) Question Answer Date of Assessment Author 1. Wish to be (Past 1 Month) No 03/24/2022 5:24 PM EDT Marah Rasmussen RN 2. Non-Specific Active Suicidal Thoughts (Past 1 Month) No 03/24/2022 5:24 PM EDT Marah Rasmussen RN 6. Suicidal Behavior (Lifetime) No 03/24/2022 5:24 PM EDT Marah Rasmussen RN documented as of this encounter Plan of Treatment Not on file documented as of this encounter Visit Diagnoses Not on filedocumented in this encounter Care Teams Maintenance Clerk Relationship Specialty Start Date End Date Atiya Boone MD [address] [place] [phone] PCP - General Internal Medicine 09/15/21 02/28/23 Unknown, Unknown, PCP - General 03/14/23 documented as of this encounter Additional Source Comments The information contained in this document represents components of the legal health record. It is not the complete legal health record.[facility]
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
--- OUTSIDE RECORDS SUMMARY | 2025-07-23 14:44 | XMS_ITS | Encounter Summary ---
Author Organization [facility] Address [id number] [place] [address] Phone Care Team Providers Care Pediatric Dietician Name Role Phone Atiya Boone MD Primary Care Provider Unknown, Unknown Primary Care Provider Shaunna mota Encounter Details Date Type Department Care Team (Late st Contact Info) Description 03/24/2022 Procedure Pass [facility], Ct Scan - [address] [id number] Social History Tobacco Use Types Packs/Day Years [...] PM EDT Claudine De Leon RN * [place] Suicide Severity Rating Scale (Screener/Recent Self-Report) Question [...] on filedocumented in this encounter Care Teams Pediatric Dietician Relationship Specialty Start Date End Date Atiya Boone MD [address] [place] [phone] PCP - General Internal Medicine 09/15/21 02/28/23 Unknown, Unknown, PCP - General 03/14/23 documented as of this encounter Additional Source Comments The information contained in this document represents components of the legal health record. It is not the complete legal health record.[facility]
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
== END 2025-07-23 12:33 | disposition home or self-care (01) ==
LOC: HO.HMCFM 11:34
PROVIDERS: PCP Physician Assistant Medical; Visit Provider Physician Assistant Medical
DX: F41.9 Anxiety disorder, unspecified (principal); K21.9 Gastro-esophageal reflux disease without esophagitis; R19.8 Other specified symptoms and signs involving the digestive system and abdomen; R11.2 Nausea with vomiting, unspecified; L30.9 Dermatitis, unspecified; M25.512 Pain in left shoulder

== ENCOUNTER → 2025-07-23 11:33 | Outpatient (BNVA) | payer OTHER, SELFPAY | PROVIDERS: PCP Physician Assistant Medical; Visit Provider Physician Assistant Medical | DX: F41.9 Anxiety disorder, unspecified (principal); K21.9 Gastro-esophageal reflux disease without esophagitis; R19.8 Other specified symptoms and signs involving the digestive system and abdomen; R11.2 Nausea with vomiting, unspecified; L30.9 Dermatitis, unspecified; M25.512 Pain in left shoulder; Z13.31 Encounter for screening for depression; Z13.39 Encounter for screening examination for other mental health and behavioral disorders | CPT/HCPCS: 96127; 99212 ==